=== PATIENT | male | born 1935 | race Hispanic/Latino ===

== ENCOUNTER → 2018-07-29 | Outpatient (CLI) | payer MEDICARE, OTHER ==
[~2018-07-29] MED LIST: METFORMIN HCL500 MG PO; NAMENDA10 MG; TAMSULOSIN HCL0.4 MG; TRAZODONE
--- NOTE | 2018-07-29 12:05 | Diagnostic Imaging Report ---
EXAM: CT Abdomen and Pelvis WITHOUT contrast INDICATION: Gross hematuria. COMPARISON: None. TECHNIQUE: Abdomen and pelvis were scanned utilizing a multidetector helical scanner from the lung base to the pubic symphysis without administration of IV contrast. Absence of intravenous contrast decreases sensitivity for detection of focal lesions and vascular pathology. Coronal and sagittal reformations were obtained. Renal stone protocol was performed. Dose modulation, iterative reconstruction, and/or weight based adjustment of the mA/kV was utilized to reduce the radiation dose to as low as reasonably achievable. RADIATION DOSE: Total DLP: 620.2 mGy*cm COMPLICATIONS: None FINDINGS: Motion artifact limits evaluation of the lower thorax and upper/mid abdomen. LINES and TUBES: None. LOWER THORAX: Diffuse motion artifact severely limits evaluation. Patchy dependent atelectasis. Coronary atherosclerosis. HEPATOBILIARY: No focal hepatic lesions. No biliary ductal dilation. GALLBLADDER: No radio-opaque stones or sludge. No wall thickening. SPLEEN: No splenomegaly. PANCREAS: No focal masses or ductal dilatation. ADRENALS: No adrenal nodules KIDNEYS/URETERS: Limited evaluation of the kidneys secondary to motion artifact. Possible punctate 1 mm calcifications overlying the right upper kidney on series 3, image 50 and left mid kidney on image 67 may represent renal stones or vascular calcifications. No evidence of hydronephrosis. No definite solid mass. No evidence of ureteral stone. GI TRACT: No abnormal distention, wall thickening, or evidence of bowel obstruction. Appendix is normal. PELVIC ORGANS/BLADDER: The bladder is mildly diffusely thick-walled, which may reflect underdistention. There is prostatomegaly, measuring up to 6.7 cm. LYMPH NODES: No lymphadenopathy. VESSELS: There are moderate atherosclerotic calcifications in the aorta and branch vessels. PERITONEUM / RETROPERITONEUM: No free air or fluid. BONES/SOFT TISSUES: Partially seen right proximal femoral fixation hardware. There are old healed left inferior and superior pubic rami fractures. Sclerotic focus within the left posterior aspect of the L5 vertebral body / pedicle is nonspecific, but may represent a bone island. IMPRESSION: Limited study secondary to motion in the lower thorax and upper/mid abdomen. Punctate 1 mm calcifications overlying bilateral kidneys could represent vascular calcifications or renal stones. No evidence of hydronephrosis or ureteral stone. Prostatomegaly measuring up to 6.7 cm. Correlation with lab values and Urologic consultation if clinically indicated is suggested. Sclerotic focus within the left posterior aspect of the L5 vertebral body / pedicle is nonspecific, but could represent a bone island in the absence of known malignancy. Signed by: Dr. Kylah Prather MD on 07/29/2018 12:02 PM
== END ==
LOC: CT 10:29
PROVIDERS: ATTEND Family Medicine
DX: R31.0 Gross hematuria (principal)
CPT/HCPCS: 74176

== ENCOUNTER → 2019-04-17 | Outpatient (CLI) | payer MEDICARE, OTHER ==
--- OUTSIDE RECORDS SUMMARY | 2019-04-17 17:52 | XMS REPORT ---
Author Author [facility] Address Unknown Phone Unavailable Care Team Providers Care Sports Medicine Masseur Name Role Phone RADHA GARCÍA Unavailable Unavailable ESTEE PRICE Unavailable Unavailable Problems This patient has no known problems. Allergies, Adverse Reactions, Alerts This patient has no known allergies or adverse reactions. Medications This patient has no known medications. Results Test Description Test Time Test Comments Text Results Atomic Results Result Comments CT ABDOMEN/PELVIS WO 2018-07-29 11:50:00 [place] [address] Patient Name: MART ANTOINE MR #: [id number] : 1935 Age/Sex: 82/M Req #: [id number] Adm Physician: Ordered by: RICKY PUGA, RADHA Rivera MD Report #: [id number] Location: CT Room/Bed: Procedure: [id number] CT/CT ABDOMEN/PELVIS WO Exam Date: 07/29/18 Exam Time: 1050 REPORT STATUS: Signed EXAM: CT Abdomen and Pelvis WITHOUT contrast INDICATION: Gross hematuria. COMPARISON: None. TECHNIQUE: Abdomen and pelvis were scanned utilizing a multidetector helical scanner from the lung base to the pubic symphysis without administration of IV contrast. Absence of intravenous contrast decreases sensitivity for detection of focal lesions and vascular pathology. Coronal and sagittal reformations were obtained. Renal stone protocol was performed. Dose modulation, iterative reconstruction, and/or weight based adjustment of the mA/kV was utilized to reduce the radiation dose to as low as reasonably achievable. RADIATION DOSE: Total DLP: 620.2 mGy*cm COMPLICATIONS: None FINDINGS: Motion artifact limits evaluation of the lower thorax and upper/mid abdomen. LINES and TUBES: None. LOWER THORAX: Diffuse motion artifact severely limits evaluation. Patchy dependent atelectasis. Coronary atherosclerosis. HEPATOBILIARY: No focal hepatic lesions. No biliary ductal dilation. GALLBLADDER: No radio-opaque stones or sludge. No wall thickening. SPLEEN: No splenomegaly. PANCREAS: No focal masses or ductal dilatation. ADRENALS: No adrenal nodules KIDNEYS/URETERS: Limited evaluation of the kidneys secondary to motion artifact. Possible punctate 1 mm calcifications overlying the right upper kidney on series 3, image 50 and left mid kidney on image 67 may represent renal stones or vascular calcifications. No evidence of hydronephrosis. No definite solid mass. No evidence of ureteral stone. GI TRACT: No abnormal distention, wall thickening, or evidence of bowel obstruction. Appendix is normal. PELVIC ORGANS/BLADDER: The bladder is mildly diffusely thick-walled, which may reflect underdistention. There is prostatomegaly, measuring up to 6.7 cm. LYMPH NODES: No lymphadenopathy. VESSELS: There are moderate atherosclerotic calcifications in the aorta and branch vessels. PERITONEUM / RETROPERITONEUM: No free air or fluid. BONES/SOFT TISSUES: Partially seen right proximal femoral fixation hardware. There are old healed left inferior and superior pubic rami fractures. Sclerotic focus within the left posterior aspect of the L5 vertebral body / pedicle is nonspecific, but may represent a bone island. IMPRESSION: Limited study secondary to motion in the lower thorax and upper/mid abdomen. Punctate 1 mm calcifications overlying bilateral kidneys could represent vascular calcifications or renal stones. No evidence of hydronephrosis or ureteral stone. Prostatomegaly measuring up to 6.7 cm. Correlation with lab values and Urologic consultation if clinically indicated is suggested. Sclerotic focus within the left posterior aspect of the L5 vertebral body / pedicle is nonspecific, but could represent a bone island in the absence of known malignancy. Signed by: Dr. Chalino Arteaga MD on 07/29/2018 12:02 PM Dictated By: CHALINO ARTEAGA MD 1202 Transcribed By: KYM on 07/29/18 1202 COPY TO: RADHA GARCÍA CT ABDOMEN/PELVIS WO [facility] [address] [place] [address] Patient Name: MART ANTOINE MR #: [id number] : 1935 Age/Sex: 81/M Req #: [id number] Adm Physician: Ordered by: ESTEE PRICE MD Report #: [id number] Location: CT Room/Bed: Procedure: [id number] CT/CT ABDOMEN/PELVIS WO Exam Date: 05/08/17 Exam Time: 1535 REPORT STATUS: Signed PROCEDURE: CT ABDOMEN AND PELVIS WITHOUT CONTRAST TECHNIQUE: The abdomen and pelvis were scanned utilizing a multidetector helical scanner from the diaphragm to the lesser trochanter after the oral administration of water. No IV contrast was administered per protocol. Coronal and sagittal multiplanar reformations were obtained. COMPARISON: [facility], CT, CT ABDOMEN/PELVIS WO, 01/18/2016, 11:33. INDICATIONS: CALCULUS OF KIDNEY FINDINGS: ABSENCE OF INTRAVENOUS CONTRAST DECREASES SENSITIVITY FOR DETECTION OF FOCAL LESIONS AND VASCULAR PATHOLOGY. LOWER THORAX: Bilateral posterior lower lobe. Groundglass opacities, likely reflecting atelectasis. No consolidation or pulmonary nodules. Atherosclerotic calcification of the coronary arteries HEPATOBILIARY: No focal hepatic lesions. No biliary ductal dilatation. Gallbladder is unremarkable. SPLEEN: No splenomegaly. PANCREAS: No focal masses or ductal dilatation. ADRENALS: No adrenal nodules. KIDNEYS/URETERS: Punctate nonobstructing calculus in the mid to inferior aspect of the left kidney (coronal image 66). The previously described 4 mm nonobstructing calculus in the left kidney is not seen on the current exam. No other renal or any ureteral calculi. No hydronephrosis or obstruction. No renal contour abnormalities. PELVIC ORGANS/BLADDER: Bladder is unremarkable. Unchanged hola ed prostatic enlargement. PERITONEUM / RETROPERITONEUM: No free air or fluid. LYMPH NODES: No lymphadenopathy. VESSELS: Atherosclerotic calcification of the abdominal aorta and iliac vessels. GI TRACT: No bowel dilation or evidence of obstruction. Appendix is well identified and normal in caliber. BONES AND SOFT TISSUES: No acute bony abnormalities. Stable, nonaggressive appearing 1.1 cm focal sclerotic lesion in the L5 left pedicle, likely representing a bone island. No lytic or other blastic lesions. Mild osteopenia. IMPRESSION: 1. punctate nonobstructing calculus in the mid to inferior aspect of the left kidney. A previously visualized 4 mm nonobstructing calculus in the left kidney is not seen in the current exam. No other renal or ureteral calculi. No hydronephrosis or obstruction. 2. Unchanged marked prostatic enlargement. Gaye Sanchez M.D. Dictated by: Gaye Sanchez M.D. on 05/08/2017 at 16:39 Electronically approved by: Gaye Sanchez M.D. on 05/08/2017 at 16:39 Dictated By: GAYE SANCHEZ MD [id number] Transcribed By: ARY on 05/08/17 6469 COPY TO: ESTEE PRICE MD
--- NOTE | 2019-04-17 19:19 | Diagnostic Imaging Report ---
Radiographs of the ribs and chest x-ray - HISTORY: Pain. Shortness of breath. Cough COMPARISON: None available. FINDINGS: Bones: No acute displaced fracture. Osseous alignment is within normal limits. Joints: Scattered degenerative change. No osseous erosion. Nondisplaced right lateral fourth and fifth rib fractures. Soft tissues: Perihilar peribronchial hazy opacity could be due to bronchitis. No consolidated pneumonia, pleural effusion or pneumothorax. IMPRESSION: Nondisplaced right lateral fourth and fifth rib fractures. Perihilar peribronchial hazy opacity could be due to bronchitis. No consolidated pneumonia, pleural effusion or pneumothorax. Signed by: Dr. Ricco Jack M.D. on 04/17/2019 7:16 PM
== END | disposition home or self-care (01) ==
LOC: RAD 17:50 → EDSTATUS 05-02 14:04
PROVIDERS: ATTEND Family Medicine
DX: S22.41XA Multiple fractures of ribs, right side, initial encounter for closed fracture (principal); R06.02 Shortness of breath; R05 Cough; R52 Pain, unspecified
CPT/HCPCS: 71101

== ENCOUNTER 2020-03-29 16:49 | Emergency (ER) | payer MEDICARE, OTHER ==
[~2020-03-29] VITALS: Ht 167.6 cm; Wt 79.4 kg
--- OUTSIDE RECORDS SUMMARY | 2020-03-29 17:42 | XMS REPORT | Continuity of Care Document ---
Author Author [facility] Organization [facility] Address [address] [place] [address] Phone Unavailable Care Team Providers Care Mri Technician Name Role Phone RADHA GARCÍA Attphys Unavailable ESTEE PRICE Attphyadri Unavailable Problems This patient has no known problems. Allergies, Adverse Reactions, Alerts This patient has no known allergies or adverse reactions. Medications This patient has no known medications. Procedures This patient has no known procedures. Results Test Description Test Time Test Comments Results Result Comments Source MARCOS RAMSAY W/CXR 2019-04-17 19:05:00 [place] [address] Patient Name: MART ANTOINE MR #: [id number] : 1935 Age/Sex: 83/M Req #: [id number] Adm Physician: Ordered by: RICKY PUGA, RADHA Rivera MD Report #: [id number] Location: [facility] Room/Bed: Procedure: [id number] DX/MARCOS RAMSAY W/CXR Exam Date: 04/17/19 Exam Time: 1845 REPORT STATUS: Signed Radiographs of the ribs and chest x-ray - HISTORY: Pain. Shortness of breath. Cough COMPARISON: None available. FINDINGS: Bones: No acute displaced fracture. Osseous alignment is within normal limits. Joints: Scattered degenerative change. No osseous erosion. Nondisplaced right lateral fourth and fifth rib fractures. Soft tissues: Perihilar peribronchial hazy opacity could be due to bronchitis. No consolidated pneumonia, pleural effusion or pneumothorax. IMPRESSION: Nondisplaced right lateral fourth and fifth rib fractures. Perihilar peribronchial hazy opacity could be due to bronchitis. No consolidated pneumonia, pleural effusion or pneumothorax. Signed by: Dr. Ricco Jack M.D. on 04/17/2019 7:16 PM Dictated By: RICCO JACK MD, MD 15 Transcribed By: KYM on 04/17/191915 COPY TO: RADHA GARCÍA CT ABDOMEN/PELVIS WO 2018-07-29 11:50:00 [place] [address] Patient Name: MART ANTOINE MR #: [id number] : 1935 Age/Sex: 82/M Req #: [id number] Adm Physician: Ordered by: RADHA GARCÍA MD, MD Report #: [id number] Location: CT Room/Bed: Procedure: [id number] CT/CT ABDOMEN/PELVIS WO Exam Date: 07/29/18 Exam [...] 1202 COPY TO: RADHA GARCÍA CT ABDOMEN/PELVIS [address] [place], [place] [address] Patient Name: MART ANTOINE MR #: [id number] : 1935 Age/Sex: 81/M Req #: [id number] Adm Physician: Ordered by: ESTEE PRICE MD Report #: [id number] Location: CT Room/Bed: Procedure: [id number] CT/CT ABDOMEN/PELVIS WO Exam Date: 05/08/17 Exam Time: 1535 REPORT STATUS: Signed PROCEDURE: CT ABDOMEN AND PELVIS WITHOUT CONTRAST TECHNIQUE: The abdomen and pelvis were scanned utilizing a multidetector helical scanner from the diaphragm to the lesser trochanter after the oral administration of water. No IV contrast was administered per protocol. Coronal and sagittal multiplanar reformations were obtained. COMPARISON: [facility], CT, CT ABDOMEN/PELVIS WO, 01/18/2016, 11:33. INDICATIONS: [...] at 16:39 Dictated By: GAYE SANCHEZ MD [id number] Transcribed By: ARY on 05/08/17 1639 COPY TO: ESTEE PRICE MD
[2020-03-29 18:21] LABS: BASOPHILS % 0.5 % (0.0-1.0); EOSINOPHILS % 0.4 % (0.0-6.0); HEMATOCRIT 42.7 % (38.2-49.6); HEMOGLOBIN 14.3 g/dL (14.0-18.0); LYMPHOCYTES # (AUTO) 1.7 (1.0-3.2); LYMPHOCYTES % 31.8 % (18.0-39.1); MEAN CORPUSCULAR HEMOGLOBIN 30.6 pg (28-32); MEAN CORPUSCULAR HGB CONC 33.5 g/dL (31-35); MEAN CORPUSCULAR VOLUME 91.2 fL (81-99); MONOCYTES # (AUTO) 0.3 (0.2-0.8); MONOCYTES % 5.7 % (4.4-11.3); NEUTROPHILS # (AUTO) 3.4 (2.1-6.9); NEUTROPHILS % 61.2 % (38.7-80.0); PLATELET COUNT 166 x10e3/uL (140-360); RED BLOOD COUNT 4.68 x10e6/uL (4.3-5.7); RED CELL DISTRIBUTION WIDTH 17.2 % (11.7-14.4)
--- NOTE | 2020-03-29 18:22 | Emergency Department Note ---
History of Present Illnes History of Present Illness Chief Complaint: Genitourinary History of Present Illness This is a 84 year old male Chief Complaint Comment PATIENT IN FROM HOME WITH COMPLAINTS OF BLOOD IN URINE STARTING YESTERDAY; PATIENTS FAMILY STATES THAT DR PRICE SENT HIM IN FOR EVALUATION. PATIENT ALERT AND ORIENTED, RESP EVEN AND NONLABORED, APPEARS IN NO DISTRESS, DENIES PAIN . Historian: Patient Arrival Mode: Car Onset (how long ago): day(s) (2) Radiation: Reports non-radiation; Denies back, Denies neck, Denies extremity, Denies abdomen, Denies periumbilical, Denies flank, Denies proximal, Denies distal, Denies other Severity: mild Onset quality: gradual Duration (how long): day(s) (2) Timing of current episode: constant Progression: unchanged Chronicity: new Context: Denies recent illness, Denies recent surgery, Denies recent immobilization, Denies recent travel, Denies trauma/injury, Denies new medications, Denies hx of DVT/PE, Denies non-compliance w/ medications, Denies other Relieving factors: none Exacerbating factors: none (BRANDY COBB MD) Past Medical/Family History Physician Review I have reviewed the patient's past medical and family history. Any updates have been documented here. (BRANDY COBB MD) Past Medical History Recent Fever: No Clinical Suspicion of Infectio: Yes New/Unexplained Change in Ment: No Past Medical History: Hypertension, Diabetes Other Medical History: BPH (BRANDY COBB MD) Social History Smoking Cessation: Former smoker Counseling Performed: Yes Alcohol Use: None Any Illegal Drug Use: No (BRANDY COBB MD) Other Any Pre-Existing Lines (PICC,: No (BRANDY COBB MD) Review of Systems Review of Systems Constitutional: Reports no symptoms EENTM: Reports no symptoms Cardiovascular: Reports no symptoms Respiratory: Reports no symptoms Gastrointestinal: Reports no symptoms Genitourinary: Reports as per HPI Musculoskeletal: Reports no symptoms Integumentary: Reports no symptoms Neurological: Reports no symptoms Psychological: Reports no symptoms Endocrine: Reports no symptoms Hematological/Lymphatic: Reports no symptoms (BRANDY COBB MD) Physical Exam Related Data Allergies: Coded Allergies: No Known Allergies (Unverified , 03/29/20) Triage Vital Signs Vital Signs Date Time Temp Pulse Resp B/P (MAP) Pulse Ox O2 Delivery O2 Flow Rate FiO2 03/29/20 17:24 97.4 74 18 107/70 98 Room Air Vital signs reviewed: Yes (BRANDY COBB MD) Physical Exam CONSTITUTIONAL Constitutional: Present well-developed, Present well-nourished HENT HENT: Present normocephalic, Present atraumatic, Present oropharynx clear/moist, Present nose normal HENT L/R: Present left ext ear normal, Present right ext ear normal EYES Eyes: Reports PERRL, Reports conjunctivae normal; Denies EOM normal, Denies lids normal, Denies left eye discharge, Denies right eye discharge, Denies scleral icterus, Denies other NECK Neck: Present ROM normal; Absent supple, Absent thyromegaly, Absent tracheal deviation, Absent stridor, Absent JVD, Absent cervical adenopathy, Absent carotid bruit, Absent other PULMONARY Pulmonary: Present effort normal, Present breath sounds normal; Absent respiratory distress, Absent rales, Absent rhonchi, Absent chest tenderness, Absent other CARDIOVASCULAR Cardiovascular: Present regular rhythm, Present heart sounds normal, Present capillary refill normal, Present normal rate; Absent irregular rhythm, Absent intact distal pulses, Absent tachycardia, Absent bradycardia, Absent murmur, Absent gallop, Absent friction rub, Absent palpable pulses, Absent strong pulses, Absent weak pulses, Absent LLE edema, Absent RLE edema, Absent other GASTROINTESTINAL Abdominal: Present soft, Present nontender, Present bowel sounds normal GENITOURINARY Genitourinary: Present exam deferred SKIN Skin: Present warm, Present dry MUSCULOSKELETAL Musculoskeletal: Present ROM normal NEUROLOGICAL Neurological: Present alert, Present oriented x 3, Present no gross motor or sensory deficits PSYCHOLOGICAL Psychological: Present mood/affect normal, Present judgement normal (BRANDY COBB MD) Results Laboratory Laboratory Laboratory Tests Test 03/29/20 17:56 03/29/20 17:28 Lab results reviewed: Yes (BRANDY COBB MD) Imaging Imaging results reviewed: Yes (BRANDY COBB MD) Imaging results reviewed: Yes Impressions [place] [address] Patient Name: MART ANTOINE MR #: [id number] : 1935 Age/Sex: 84/M [facility] #: [id number] [facility] Physician: Ordered by: BRANDY COBB MD Report #: [id number] Location: Room/Bed: Procedure: [id number] CT/CT ABDOMEN/PELVIS WO Exam Date: 03/29/20 Exam Time: 1909 REPORT STATUS: Signed EXAM: CT Abdomen and Pelvis WITHOUT contrast INDICATION: Hematuria COMPARISON: None. TECHNIQUE: Abdomen and pelvis were scanned utilizing a multidetector helical scanner from the lung base to the pubic symphysis without administration of IV contrast. Absence of intravenous contrast decreases sensitivity for detection of focal lesions and vascular pathology. Coronal and sagittal reformations were obtained. Routine protocol was performed. IV CONTRAST: None ORAL CONTRAST: None COMPLICATIONS: None RADIATION DOSE: Total DLP: 390 mGy*cm Estimated effective dose: (DLP x 0.015 x size factor) mSv CTDIvol has been reviewed. It is below the limits set by the Radiation Protocol Committee (RPC). Dose modulation, iterative reconstruction, and/or weight based adjustment of the mA/kV was utilized to reduce the radiation dose to as low as reasonably achievable. FINDINGS: LINES and TUBES: None. LOWER THORAX: There is bibasilar atelectasis. Atherosclerotic calcification of the coronary vessels. HEPATOBILIARY: No focal hepatic lesions. No biliary ductal dilation. GALLBLADDER: No radio-opaque stones or sludge. No wall thickening. SPLEEN: No splenomegaly. Multifocal calcifications which likely represent sequela of prior granulomatous infection. PANCREAS: No focal masses or ductal dilatation. ADRENALS: No adrenal nodules KIDNEYS/URETERS: No hydronephrosis. No cystic or solid mass lesions. No stones. Punctate calcifications in bilateral kidneys are favored to be vascular calcifications. GI TRACT: No abnormal distention, wall thickening, or evidence of bowel obstruction. Appendix is normal. PELVIC ORGANS/BLADDER: The prostate gland is enlarged measuring approximately 7.6 x 5.9 cm. LYMPH NODES: No lymphadenopathy. VESSELS: Scattered mild arterial vascular calcifications. PERITONEUM / RETROPERITONEUM: No free air or fluid. BONES: The bones are diffusely demineralized. There are degenerative changes in the spine. Partially imaged right femur intramedullary nail. No evidence of hardware complication. Healed left inferior pubic rami fracture. SOFT TISSUES: Unremarkable. IMPRESSION: 1. No obstructive renal or ureteral stones bilaterally. 2. Prostatomegaly. Signed by: Uche Awan MD on 03/29/2020 7:53 PM Dictated By: UCHE AWAN MD 52 Transcribed By: KYM on 03/29/201952 COPY TO: BRANDY COBB MD~ (RICHA AJ DO) Assessment & Plan Medical Decision Making MDM Diff dx : UTI, cystitis, hemorrhagic cystitis, Bladder CA, sepsis (RICHA AJ DO) Assessment & Plan Final Impression: (1) UTI (urinary tract infection) (RICHA AJ DO) Depart Disposition: HOME, SELF-CARE Last Vital Signs Date Time Temp Pulse Resp B/P (MAP) Pulse Ox O2 Delivery O2 Flow Rate FiO2 03/29/20 18:08 70 16 106/69 96 Room Air 03/29/20 17:24 97.4 (BRANDY COBB MD) Home Meds Reported Medications Tamsulosin Hcl (TAMSULOSIN HCL) 0.4 Mg Cap.er.24h, HS 04/07/16 Memantine Hcl (NAMENDA) 10 Mg Tablet, 10 MG BID, #30 TAB 04/07/16 [Trazodone ] No Conflict Check, 150 MG HS 04/07/16 Metformin Hcl (METFORMIN HCL) 500 Mg Tablet, 1000 MG PO HS, #60 TAB 04/07/16 BRANDY COBB MD Mar 29, 2020 18:22 RICHA AJ DO Mar 29, 2020 20:08
[2020-03-29 18:24] LABS: BILIRUBIN,URINE NEGATIVE (NEGATIVE); CLARITY,URINE SL CLOUDY (CLEAR); COLOR,URINE STRAW (YELLOW); KETONES,URINE TRACE (NEGATIVE); LEUKOCYTE ESTERASE ,URINE NEGATIVE (NEGATIVE); NITRITE,URINE NEGATIVE (NEGATIVE); PROTEIN,URINE DIPSTICK TRACE (NEGATIVE); URINE UROBILINOGEN 0.2 mg/dL (0.2 - 1)
[2020-03-29 18:25] LABS: INR 0.93; PROTHROMBIN TIME 12.9 seconds (11.9-14.5)
[2020-03-29 18:34] LABS: ALANINE AMINOTRANSFERASE 32 IU/L (0-55); ALBUMIN 4.3 g/dL (3.5-5.0); ALBUMIN/GLOBULIN RATIO 1.2 (0.8-2.0); ALKALINE PHOSPHATASE 102 IU/L (40-150); ANION GAP 14.6 mmol/L (8-16); BLOOD UREA NITROGEN 10 mg/dL (7-26); BUN/CREATININE RATIO 10 (6-25); CALCIUM 9.3 mg/dL (8.4-10.2); CARBON DIOXIDE 23 mmol/L (22-29); CHLORIDE 106 mmol/L (98-107); CREATININE, SERUM 1.04 mg/dL (0.72-1.25); EST GLOMERULAR FILTRATION RATE > 60 ML/MIN (60-); GLUCOSE 170 mg/dL (74-118); POTASSIUM 3.6 mmol/L (3.5-5.1); SODIUM 140 mmol/L (136-145)
[2020-03-29 18:36] LABS: BACTERIA,URINE MODERATE /HPF; CALCIUM OXALATE CRYSTALS,UR FEW (FEW); EPITHELIAL CELLS,URINE FEW /LPF
--- NOTE | 2020-03-29 19:56 | Diagnostic Imaging Report ---
EXAM: CT Abdomen and Pelvis WITHOUT contrast INDICATION: Hematuria COMPARISON: None. TECHNIQUE: Abdomen and pelvis were scanned utilizing a multidetector helical scanner from the lung base to the pubic symphysis without administration of IV contrast. Absence of intravenous contrast decreases sensitivity for detection of focal lesions and vascular pathology. Coronal and sagittal reformations were obtained. Routine protocol was performed. IV CONTRAST: None ORAL CONTRAST: None COMPLICATIONS: None RADIATION DOSE: Total DLP: 390 mGy*cm Estimated effective dose: (DLP x 0.015 x size factor) mSv CTDIvol has been reviewed. It is below the limits set by the Radiation Protocol Committee (RPC). Dose modulation, iterative reconstruction, and/or weight based adjustment of the mA/kV was utilized to reduce the radiation dose to as low as reasonably achievable. FINDINGS: LINES and TUBES: None. LOWER THORAX: There is bibasilar atelectasis. Atherosclerotic calcification of the coronary vessels. HEPATOBILIARY: No focal hepatic lesions. No biliary ductal dilation. GALLBLADDER: No radio-opaque stones or sludge. No wall thickening. SPLEEN: No splenomegaly. Multifocal calcifications which likely represent sequela of prior granulomatous infection. PANCREAS: No focal masses or ductal dilatation. ADRENALS: No adrenal nodules KIDNEYS/URETERS: No hydronephrosis. No cystic or solid mass lesions. No stones. Punctate calcifications in bilateral kidneys are favored to be vascular calcifications. GI TRACT: No abnormal distention, wall thickening, or evidence of bowel obstruction. Appendix is normal. PELVIC ORGANS/BLADDER: The prostate gland is enlarged measuring approximately 7.6 x 5.9 cm. LYMPH NODES: No lymphadenopathy. VESSELS: Scattered mild arterial vascular calcifications. PERITONEUM / RETROPERITONEUM: No free air or fluid. BONES: The bones are diffusely demineralized. There are degenerative changes in the spine. Partially imaged right femur intramedullary nail. No evidence of hardware complication. Healed left inferior pubic rami fracture. SOFT TISSUES: Unremarkable. IMPRESSION: 1. No obstructive renal or ureteral stones bilaterally. 2. Prostatomegaly. Signed by: Armida Powers MD on 03/29/2020 7:53 PM
== END 2020-03-29 20:20 | disposition home or self-care (01) ==
LOC: ER 17:20
DX: N39.0 Urinary tract infection, site not specified (principal); R31.9 Hematuria, unspecified; I10 Essential (primary) hypertension; E11.9 Type 2 diabetes mellitus without complications
CPT/HCPCS: 36415; 74176; 80053; 81001; 85025; 85610; 99284

== ENCOUNTER 2020-04-25 19:39 | Inpatient (IN) | payer MEDICARE, OTHER ==
[~2020-04-25] VITALS: Ht 167.6 cm; Wt 79.4 kg
--- NOTE | 2020-04-25 20:41 | Emergency Department Note ---
History of Present Illnes History of Present Illness Chief Complaint: Extremity Trauma/Pain History of Present Illness This is a 84 year old male presents to ED with pain to left hip and left elbow (small abrasion noted to elbow); pts daughter reports witnessed fall [employer] to ED, denies LOC; . Awake Overnight Monitor Required: No Onset (how long ago): hour(s) (1) Location: left elbow,left hip Quality: pain s/p fall Radiation: Reports non-radiation Severity: moderate Onset quality: sudden Duration (how long): hour(s) (1) Timing of current episode: constant Progression: unchanged Context: Reports trauma/injury (tripped and fell taking out the garbage) Relieving factors: none Exacerbating factors: movement Associated symptoms: Reports denies other symptoms Past Medical/Family History Physician Review I have reviewed the patient's past medical and family history. Any updates have been documented here. Past Medical History Recent Fever: No Clinical Suspicion of Infectio: No New/Unexplained Change in Ment: No Past Medical History: Hypertension, Diabetes Other Medical History: BPH Past Surgical History: None Social History Smoking Cessation: Never Smoker Alcohol Use: None Any Illegal Drug Use: No Review of Systems Review of Systems Constitutional: Reports no symptoms EENTM: Reports no symptoms Cardiovascular: Reports no symptoms Respiratory: Reports no symptoms Gastrointestinal: Reports no symptoms Genitourinary: Reports no symptoms Musculoskeletal: Reports as per HPI Integumentary: Reports no symptoms Neurological: Reports no symptoms Psychological: Reports no symptoms Endocrine: Reports no symptoms Hematological/Lymphatic: Reports no symptoms Physical Exam Related Data Allergies: Coded Allergies: No Known Allergies (Unverified , 03/29/20) Triage Vital Signs Vital Signs Date Time Temp Pulse Resp B/P (MAP) Pulse Ox O2 Delivery O2 Flow Rate FiO2 04/25/20 19:46 97.7 72 16 117/70 100 Room Air Vital signs reviewed: Yes Physical Exam CONSTITUTIONAL Constitutional: Present well-developed, Present well-nourished HENT HENT: Present normocephalic, Present atraumatic, Present oropharynx clear/moist, Present nose normal HENT L/R: Present left ext ear normal, Present right ext ear normal EYES Eyes: Reports PERRL, Reports conjunctivae normal, Reports scleral icterus (minimal possible icterus) NECK Neck: Present ROM normal PULMONARY Pulmonary: Present effort normal, Present breath sounds normal CARDIOVASCULAR Cardiovascular: Present regular rhythm, Present heart sounds normal, Present capillary refill normal, Present normal rate GASTROINTESTINAL Abdominal: Present soft, Present nontender, Present bowel sounds normal GENITOURINARY Genitourinary: Present exam deferred SKIN Skin: Present warm, Present dry MUSCULOSKELETAL abrasion to left elbow pain with rom of left hip n/v intact NEUROLOGICAL Neurological: Present alert, Present oriented x 3, Present no gross motor or sensory deficits PSYCHOLOGICAL Psychological: Present mood/affect normal, Present judgement normal Results Laboratory Laboratory Laboratory Tests Test 04/25/20 19:51 White Blood Count 11.02 x10e3/uL (4.8-10.8) Red Blood Count 4.57 x10e6/uL (4.3-5.7) Hemoglobin 14.1 g/dL (14.0-18.0) Hematocrit 42.1 % (38.2-49.6) Mean Corpuscular Volume 92.1 fL (81-99) Mean Corpuscular Hemoglobin 30.9 pg (28-32) Mean Corpuscular Hemoglobin Concent 33.5 g/dL (31-35) Red Cell Distribution Width 17.4 % (11.7-14.4) Platelet Count 201 x10e3/uL (140-360) Neutrophils (%) (Auto) 80.2 % (38.7-80.0) Lymphocytes (%) (Auto) 14.2 % (18.0-39.1) Monocytes (%) (Auto) 4.4 % (4.4-11.3) Eosinophils (%) (Auto) 0.3 % (0.0-6.0) Basophils (%) (Auto) 0.3 % (0.0-1.0) Neutrophils # (Auto) 8.8 (2.1-6.9) Lymphocytes # (Auto) 1.6 (1.0-3.2) Monocytes # (Auto) 0.5 (0.2-0.8) Eosinophils # (Auto) 0.0 (0.0-0.4) Basophils # (Auto) 0.0 (0.0-0.1) Absolute Immature Granulocyte (auto 0.07 x10e3/uL (0-0.1) Sodium Level 138 mmol/L (136-145) Potassium Level 3.9 mmol/L (3.5-5.1) Chloride Level 104 mmol/L (98-107) Carbon Dioxide Level 20 mmol/L (22-29) Anion Gap 17.9 mmol/L (8-16) Blood Urea Nitrogen 14 mg/dL (7-26) Creatinine 0.93 mg/dL (0.72-1.25) Estimat Glomerular Filtration Rate > 60 ML/MIN (60-) BUN/Creatinine Ratio 15 (6-25) Glucose Level 191 mg/dL (74-118) Calcium Level 9.0 mg/dL (8.4-10.2) Total Bilirubin 0.5 mg/dL (0.2-1.2) Aspartate Amino Transf (AST/SGOT) 48 IU/L (5-34) Alanine Aminotransferase (ALT/SGPT) 36 IU/L (0-55) Alkaline Phosphatase 104 IU/L (40-150) Creatine Kinase 81 IU/L (30-200) Creatine Kinase MB 1.30 ng/mL (0-5.0) Troponin I 0.008 ng/mL (0-0.300) Total Protein 7.7 g/dL (6.5-8.1) Albumin 4.4 g/dL (3.5-5.0) Globulin 3.3 g/dL (2.3-3.5) Albumin/Globulin Ratio 1.3 (0.8-2.0) Amylase Level 153 U/L (25-125) Lipase 52 U/L (8-78) Lab results reviewed: Yes Imaging Imaging results reviewed: Yes Impressions [place] [id number] Patient Name: MART ANTOINE MR #: [id number] : 1935 Age/Sex: 84/M Req #: [id number] Adm Physician: Ordered by: PHILLIP ANDRES MD Report #: [id number] Location: Room/Bed: Procedure: DX/ELBOW LEFT COMPLETE Exam Date: 04/25/20 Exam Time: 2109 REPORT STATUS: Signed X-ray left elbow 3 views HISTORY: Pain. Fall COMPARISON: None available. FINDINGS: Bones: Tiny krishna of ossific ossific adjacent to the lateral condyle with adjacent soft tissue swelling. Otherwise, no acute displaced fracture. Bone demineralization. Joints: The joint spaces are well-maintained. IMPRESSION: 1. Tiny krishna of ossific density with adjacent soft tissue swelling at the lateral epicondyles may represent a ligamentous avulsion injury, or chronic epicondylitis. Correlate for point tenderness. 2. Otherwise, no acute displaced fracture or dislocation. Signed by: Vern Nolasco MD on 04/25/2020 9:42 PM Dictated By: VERN NOLASCO MD 41 Transcribed By: KYM on 04/25/202141 COPY TO: PHILLIP ANDRES MD~ [place] [id number] Patient Name: MART ANTOINE MR #: [id number] : 1935 Age/Sex: 84/M Req #: [id number] Adm Physician: Ordered by: PHILLIP ANDRES MD Report #: [id number] Location: ER Room/Bed: Procedure: DX/HIP LEFT 2-3 VW (+/- PELVIS) Exam Date: Exam Time: REPORT STATUS: Signed HIP LEFT 2-3 VW (+/- PELVIS) - 3 views HISTORY: Pain. Fall COMPARISON: CT dated 03/29/2020.. FINDINGS: Acute mildly displaced intertrochanteric fracture of the left hip which extends into the subcapital femoral neck region. Left femoral head articulates with the acetabulum. Old chronic fracture deformity of the left inferior pubic ramus as seen on prior CT. Partially imaged right femoral to intramedullary nail and screw fixation with adjacent heterotopic ossification. Degenerative changes of the spine. Bones are demineralized. IMPRESSION: Acute mildly displaced intertrochanteric fracture of the left hip that extends into the subcapital region. Signed by: Vern Nolasco MD on 04/25/2020 9:47 PM Dictated By: VERN NOLASCO MD 46 Transcribed By: KYM on 04/25/202146 COPY TO: PHILLIP ANDRES MD~ Procedure: [id number] CT/CT CERVICAL SPINE WO Exam Date: Exam Time: REPORT STATUS: Signed EXAMINATION: Head and cervical spine CT without contrast. HISTORY: 84-year-old male status post fall, trauma, pain COMPARISON: None. TECHNIQUE: Multidetector axial images were obtained without contrast from the foramen magnum to the vertex and through the cervical spine. Dose modulation, iterative reconstruction, and/or weight based adjustment of the mA/kV was utilized to reduce the radiation dose to as low as reasonably achievable. HEAD CT FINDINGS: Skull/scalp: No lytic or blastic lesions. No fractures. Parenchyma: Normal. No mass, hemorrhage or CT evidence of acute vascular insult. Brain volume: Normal for age. Ventricles: No hydrocephalus or displacement. 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 Dural sinuses: No abnormal density. Extra-axial spaces: No abnormal density. Foramen magnum: No mass, Chiari malformation, or basilar invagination. Sella: No obvious mass. Paranasal/mastoid sinuses: Imaged portions unremarkable. CERVICAL SPINE CT FINDINGS: Alignment:Normal alignment and lordosis. Soft tissues: Normal. Vertebrae: Minimal chronic compression deformity of the C5, C6 and C7 vertebral bodies, which may represent sequela from old trauma or be related to osteopenia/osteoporosis. Otherwise normal height. No acute fracture, infection or neoplasm. Degenerative changes: No significant degenerative changes, no spinal canal or foraminal stenosis. IMPRESSION: Head CT: No acute posttraumatic intracranial abnormalities, particularly no hemorrhage. Cervical spine CT: 1. No acute fractures or dislocations. 2. Diffuse osteopenia and minimal chronic compression deformity from C5 to C7 vertebral bodies. Note: Acute post traumatic spinal cord, vascular or ligamentous injury cannot adequately be assessed with CT. Signed by: Dr. Meghan Villarreal M.D. on 04/25/2020 10:09 PM Dictated By: MEGHAN VILLARREAL MD 08 Transcribed By: KYM on 04/25/202208 COPY TO: PHILLIP ANDRES MD~ Assessment & Plan Medical Decision Making MDM pt s/p fall and appears to possibly have scleral icterus ct brain, left elbow, left hip, cbc, cmp ordered to eval for fractures, intracranial trauma, elevated bilirubin,elevated lft's, anemia I SPOKE WITH DR DASH AND HE REQUESTED DR TAM BE CONSULTED, I SPOKE WITH DR TAM Assessment & Plan Final Impression: (1) Abrasion of left elbow (2) Hip fracture, left Depart Disposition: ADMITTED Last Vital Signs Date Time Temp Pulse Resp B/P (MAP) Pulse Ox O2 Delivery O2 Flow Rate FiO2 04/25/20 19:46 97.7 72 16 117/70 100 Room Air Home Meds Reported Medications Tamsulosin Hcl (TAMSULOSIN HCL) 0.4 Mg Cap.er.24h, HS 04/07/16 Memantine Hcl (NAMENDA) 10 Mg Tablet, 10 MG BID, #30 TAB 04/07/16 [Trazodone ] No Conflict Check, 150 MG HS 04/07/16 Metformin Hcl (METFORMIN HCL) 500 Mg Tablet, 1000 MG PO HS, #60 TAB 04/07/16 PHILLIP ANDRES MD Apr 25, 2020 20:41
[2020-04-25 20:47] LABS: BASOPHILS % 0.3 % (0.0-1.0); EOSINOPHILS % 0.3 % (0.0-6.0); HEMATOCRIT 42.1 % (38.2-49.6); HEMOGLOBIN 14.1 g/dL (14.0-18.0); LYMPHOCYTES # (AUTO) 1.6 (1.0-3.2); LYMPHOCYTES % 14.2 % (18.0-39.1); MEAN CORPUSCULAR HEMOGLOBIN 30.9 pg (28-32); MEAN CORPUSCULAR HGB CONC 33.5 g/dL (31-35); MEAN CORPUSCULAR VOLUME 92.1 fL (81-99); MONOCYTES # (AUTO) 0.5 (0.2-0.8); MONOCYTES % 4.4 % (4.4-11.3); NEUTROPHILS # (AUTO) 8.8 (2.1-6.9); NEUTROPHILS % 80.2 % (38.7-80.0); PLATELET COUNT 201 x10e3/uL (140-360); RED BLOOD COUNT 4.57 x10e6/uL (4.3-5.7); RED CELL DISTRIBUTION WIDTH 17.4 % (11.7-14.4)
[2020-04-25 20:58] LABS: ALANINE AMINOTRANSFERASE 36 IU/L (0-55); ALBUMIN 4.4 g/dL (3.5-5.0); ALBUMIN/GLOBULIN RATIO 1.3 (0.8-2.0); ALKALINE PHOSPHATASE 104 IU/L (40-150); ANION GAP 17.9 mmol/L (8-16); BLOOD UREA NITROGEN 14 mg/dL (7-26); BUN/CREATININE RATIO 15 (6-25); CARBON DIOXIDE 20 mmol/L (22-29); CHLORIDE 104 mmol/L (98-107); CREATINE KINASE 81 IU/L (30-200); CREATININE, SERUM 0.93 mg/dL (0.72-1.25); EST GLOMERULAR FILTRATION RATE > 60 ML/MIN (60-); GLUCOSE 191 mg/dL (74-118); POTASSIUM 3.9 mmol/L (3.5-5.1); SODIUM 138 mmol/L (136-145)
[2020-04-25 21:21] LABS: AMYLASE 153 U/L (25-125); LIPASE 52 U/L (8-78)
--- NOTE | 2020-04-25 21:46 | Diagnostic Imaging Report ---
X-ray left elbow 3 views HISTORY: Pain. Fall COMPARISON: None available. FINDINGS: Bones: Tiny krishna of ossific ossific adjacent to the lateral condyle with adjacent soft tissue swelling. Otherwise, no acute displaced fracture. Bone demineralization. Joints: The joint spaces are well-maintained. IMPRESSION: 1. Tiny krishna of ossific density with adjacent soft tissue swelling at the lateral epicondyles may represent a ligamentous avulsion injury, or chronic epicondylitis. Correlate for point tenderness. 2. Otherwise, no acute displaced fracture or dislocation. Signed by: Darryl Marks MD on 04/25/2020 9:42 PM
--- NOTE | 2020-04-25 21:50 | Diagnostic Imaging Report ---
HIP LEFT 2-3 VW (+/- PELVIS) - 3 views HISTORY: Pain. Fall COMPARISON: CT dated 03/29/2020.. FINDINGS: Acute mildly displaced intertrochanteric fracture of the left hip which extends into the subcapital femoral neck region. Left femoral head articulates with the acetabulum. Old chronic fracture deformity of the left inferior pubic ramus as seen on prior CT. Partially imaged right femoral to intramedullary nail and screw fixation with adjacent heterotopic ossification. Degenerative changes of the spine. Bones are demineralized. IMPRESSION: Acute mildly displaced intertrochanteric fracture of the left hip that extends into the subcapital region. Signed by: Darryl Marks MD on 04/25/2020 9:47 PM
[2020-04-25] MEDS ORDERED: MORPHINE SULFATE INJ 4 MG/ML INJ 1ML IV STA (21:51)
[2020-04-25] MEDS ORDERED: ONDANSETRON HCL INJ 2MG/ML 2ML 2 MG/ML VIAL IV STA (21:51)
--- NOTE | 2020-04-25 22:12 | Diagnostic Imaging Report ---
EXAMINATION: Head and cervical spine CT without contrast. HISTORY: 84-year-old male status post fall, trauma, pain COMPARISON: None. TECHNIQUE: Multidetector axial images were obtained without contrast from the foramen magnum to the vertex and through the cervical spine. Dose modulation, iterative reconstruction, and/or weight based adjustment of the mA/kV was utilized to reduce the radiation dose to as low as reasonably achievable. HEAD CT FINDINGS: Skull/scalp: No lytic or blastic lesions. No fractures. Parenchyma: Normal. No mass, hemorrhage or CT evidence of acute vascular insult. Brain volume: Normal for age. Ventricles: No hydrocephalus or displacement. 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 Dural sinuses: No abnormal density. Extra-axial spaces: No abnormal density. Foramen magnum: No mass, Chiari malformation, or basilar invagination. Sella: No obvious mass. Paranasal/mastoid sinuses: Imaged portions unremarkable. CERVICAL SPINE CT FINDINGS: Alignment:Normal alignment and lordosis. Soft tissues: Normal. Vertebrae: Minimal chronic compression deformity of the C5, C6 and C7 vertebral bodies, which may represent sequela from old trauma or be related to osteopenia/osteoporosis. Otherwise normal height. No acute fracture, infection or neoplasm. Degenerative changes: No significant degenerative changes, no spinal canal or foraminal stenosis. IMPRESSION: Head CT: No acute posttraumatic intracranial abnormalities, particularly no hemorrhage. Cervical spine CT: 1. No acute fractures or dislocations. 2. Diffuse osteopenia and minimal chronic compression deformity from C5 to C7 vertebral bodies. Note: Acute post traumatic spinal cord, vascular or ligamentous injury cannot adequately be assessed with CT. Signed by: Dr. Kyung Villarreal M.D. on 04/25/2020 10:09 PM
[2020-04-25] MEDS ORDERED: DEXTROSE 50% SYRINGE 50 ML IV PRN (22:30)
[2020-04-25] MEDS ORDERED: HEPARIN SOD (PORCINE) 5,000 UNIT/ML VIAL SC ONE (22:45)
[2020-04-25] MEDS ORDERED: HEPARIN SOD (PORCINE) 5,000 UNIT/ML VIAL ONE (22:48)
[2020-04-25] MEDS ORDERED: SODIUM CHLORIDE 0.9% 1000ML 1,000 ML ONE (22:49)
[2020-04-25] MEDS: SODIUM CHLORIDE 0.9% 1000ML 1,000 ML IV SCH (22:54)
[2020-04-25 23:17] LABS: INR 1.07; PROTHROMBIN TIME 14.4 seconds (11.9-14.5)
[2020-04-25 23:18] LABS: PARTIAL THROMBOPLASTIN TIME 35.9 seconds (23.8-35.5)
--- NOTE | 2020-04-25 23:18 | Diagnostic Imaging Report ---
EXAMINATION: CHEST SINGLE (PORTABLE) INDICATION: ^PRE OP ^[id number] ^[id number] ^Y COMPARISON: X-ray 04/07/2016 FINDINGS: TUBES and LINES: None. LUNGS: Low lung volumes, likely accentuated interstitial pulmonary markings. No consolidations. PLEURA: No pleural effusion or pneumothorax. HEART AND MEDIASTINUM: The cardiomediastinal silhouette is unremarkable. BONES AND SOFT TISSUES: No acute osseous lesion. Soft tissues are unremarkable. UPPER ABDOMEN: No free air under the diaphragm. IMPRESSION: No acute thoracic abnormality. Signed by: Darryl Marks MD on 04/25/2020 11:18 PM
[2020-04-25 23:34] LABS: CLARITY,URINE CLEAR (CLEAR); COLOR,URINE YELLOW (YELLOW); LEUKOCYTE ESTERASE ,URINE NEGATIVE (NEGATIVE); NITRITE,URINE NEGATIVE (NEGATIVE)
[2020-04-25 23:35] LABS: BACTERIA,URINE FEW /HPF; BILIRUBIN,URINE NEGATIVE (NEGATIVE); EPITHELIAL CELLS,URINE FEW /LPF; KETONES,URINE 1+ (NEGATIVE); PROTEIN,URINE DIPSTICK NEGATIVE (NEGATIVE); URINE UROBILINOGEN 0.2 mg/dL (0.2 - 1)
--- NOTE | 2020-04-25 23:46 | Diagnostic Imaging Report ---
FEMUR 2 VIEWS MINIMUM LEFT - 3 views HISTORY: Pain. Fall COMPARISON: Radiograph from today. FINDINGS: Redemonstrated intertrochanteric left hip fracture. Redemonstrated chronic fracture deformity of the inferior pubic ramus. No acute fracture of the left femoral shaft. IMPRESSION: 1. No acute fracture of the left femoral shaft. 2. Redemonstrated acute intertrochanteric hip fracture. Signed by: Darryl Marks MD on 04/25/2020 11:43 PM
--- NOTE | 2020-04-25 23:50 | NUR ---
Patient arrived to the floor via stretcher. Patient divehi speaking with ALZ. Consent completed in ER. Wound to left elbow applied dressing to cover. Patient denies pain.
[2020-04-26] VITALS (8 sets, daily range): BP systolic 100–128; BP diastolic 64–102
[2020-04-26 00:16] LABS: CALCIUM OXALATE CRYSTALS,UR FEW (FEW); MUCUS,URINE MANY (RARE)
--- NOTE | 2020-04-26 05:08 | NUR ---
Assessment and admit completed, Patient NPO for procedure. Patient slightly confuse. Consent signed by .
--- NOTE | 2020-04-26 05:15 | NUR ---
Patient HR up to 150. Called left message of .
[2020-04-26 05:40] LABS: BASOPHILS % 0.1 % (0.0-1.0); EOSINOPHILS % 0.1 % (0.0-6.0); HEMATOCRIT 34.7 % (38.2-49.6); HEMOGLOBIN 12.1 g/dL (14.0-18.0); LYMPHOCYTES # (AUTO) 0.8 (1.0-3.2); MEAN CORPUSCULAR HEMOGLOBIN 31.9 pg (28-32); MEAN CORPUSCULAR HGB CONC 34.9 g/dL (31-35); MEAN CORPUSCULAR VOLUME 91.6 fL (81-99); MONOCYTES # (AUTO) 0.8 (0.2-0.8); MONOCYTES % 6.8 % (4.4-11.3); NEUTROPHILS # (AUTO) 9.7 (2.1-6.9); NEUTROPHILS % 85.4 % (38.7-80.0); PLATELET COUNT 140 x10e3/uL (140-360); RED BLOOD COUNT 3.79 x10e6/uL (4.3-5.7); RED CELL DISTRIBUTION WIDTH 16.9 % (11.7-14.4)
[2020-04-26 05:59] LABS: ANION GAP 14.9 mmol/L (8-16); BLOOD UREA NITROGEN 12 mg/dL (7-26); BUN/CREATININE RATIO 16 (6-25); CALCIUM 8.1 mg/dL (8.4-10.2); CARBON DIOXIDE 18 mmol/L (22-29); CHLORIDE 109 mmol/L (98-107); CREATININE, SERUM 0.74 mg/dL (0.72-1.25); EST GLOMERULAR FILTRATION RATE > 60 ML/MIN (60-); GLUCOSE 163 mg/dL (74-118); POTASSIUM 3.9 mmol/L (3.5-5.1); SODIUM 138 mmol/L (136-145)
[2020-04-26] MEDS: INSULIN REGULAR, HUMAN 100 UNIT/1 ML 3ML VIAL SQ SCH ×4 (07:30→21:00)
[2020-04-26] MEDS: SODIUM CHLORIDE 0.9% 1000ML 1,000 ML IV SCH ×3 (10:11→21:34)
[2020-04-26] MEDS: MORPHINE SULFATE INJ 4 MG/ML INJ 1ML IV PRN ×3 (10:12→21:35)
[2020-04-26] MEDS ORDERED: ACETAMINOPHEN 325 MG TAB PO PRN (12:00)
[2020-04-26] MEDS ORDERED: HYDRALAZINE HCL 20 MG/ML VIAL IV PRN (12:00)
[2020-04-26] MEDS ORDERED: PHENYLEPHRINE HCL 1% 10 MG/ML VIAL ONE (12:05)
[2020-04-26] MEDS ORDERED: SEVOFLURANE INHAL SOLN 250 ML PEN BTL ONE (12:05)
[2020-04-26] MEDS ORDERED: LIDOCAINE HCL 2% LOCAL INJ 5 ML SDV VIAL INJ ONE (12:05)
[2020-04-26] MEDS ORDERED: ONDANSETRON HCL INJ 2MG/ML 2ML 2 MG/ML VIAL ONE (12:05)
[2020-04-26] MEDS ORDERED: PROPOFOL IV EMULSION 10 MG/ML 20 ML VIAL ONE (12:05)
[2020-04-26] MEDS ORDERED: ACETAMINOPHEN 1000 MG/100 ML IV ONE (12:05)
[2020-04-26] MEDS ORDERED: BUPIVACAINE HCL 0.5% INJ 30 ML VIAL INJ ONE (12:26)
--- NOTE | 2020-04-26 12:30 | NUR ---
Pt was transferred to OR at this time for procedure. Pt aox2 a this time, 0 s/s of acute distress noted at time of transfer. Family at the bedside.
[2020-04-26] MEDS ORDERED: FENTANYL CITRATE/PF 100MCG/2 ML INJ ONE (13:12)
[2020-04-26] MEDS ORDERED: ACETAMINOPHEN 1000 MG/100 ML 100 ML IV ONE (14:06)
--- NOTE | 2020-04-26 15:20 | NUR ---
ORTHOPEDIC CONSULTATION 84 year old household ambulator with a walker presents to the ED after a mechanical fall with complaints of left hip pain and an inability to ambulate. He has some minor pain in his left elbow. Denies any numbness, paresthesias or loss of distal motor function. Patient has alzheimers and is a poor history. History provided by family at bedside PMdHx: HTN, Hypothyroidism, DM Allergies: NKDA SurgHx: Cataract, Right Hip IMN (Jags 2017) FamHx: Non-contributory Meds: See Reconciliation SocHx: No tobacco, EtOH or Drugs VS: AVSS Left Lower Extremity: No open lesions or sores Unable to straignt leg raise, pain with log roll & heal strike Motor: + EHL, FHL, TA, G/S Sensation grossly intact to light touch Pulses + DP, Post tib Compartments soft Negative calf tenderness Left Elbow: Skin tear 5x5mm along lateral epicondyle Motor: + AIN, PIN, Radial, Median, Ulnar Sensation grossly intact to light touch Pulses + DP, Post tib Compartments soft Negative calf tenderness Xrays: Non-displaced Left Intertrochanteric Hip Fracture Calcification along lateral epicondyle of left elbow, likely calcific tendinitis 84 year old male with Left Intertrochanteric Hip Fracture and Left Elbow Laceration -Plan for left hip IMN -NPO except meds, -Hold anticoagulation -IVF while NPO -Bedrest -Left Elbow placed with clean dressing- no intervention required. Thank you for the consultation
--- NOTE | 2020-04-26 15:25 | NUR ---
OPERATIVE NOTE - ORTHOPEDICS PREOPERATIVE DIAGNOSIS: Left Hip Intertrochanteric hip fracture. POSTOPERATIVE DIAGNOSIS: Left Hip Intertrochanteric hip fracture. OPERATION PERFORMED: Left Hip Intramedullary Nailing with Flouroscopic Interpretation ESTIMATED BLOOD LOSS: Approximately 100 cc. DRAINS: None. ANESTHESIA GIVEN: General COMPLICATIONS: None. IMPLANTS: [employer] Gamma 3 system Trochanteric Nail Kit 13 x 400 mm x 125 degree, 10.5 x 85 mm Lag Screw, 5 x 50 & 5 x 60 mm Locking Fully Threaded Screw INDICATIONS FOR PROCEDURE: The patient is a 84-year-old male, who sustained a Left intertrochanteric hip fracture after a fall. He was admitted for a preoperative medical clearance and to be taken to the operating room for an intramedullary nailing of Left hip fracture. Consent is signed on the chart. All risks and benefits regarding the procedure were explained: Risks of , infection, nerve or blood vessel injury or bleeding, need for blood transfusion, blood clots, failure to heal, need for further surgery were all explained and consent was signed. DESCRIPTION OF OPERATIVE PROCEDURE: The patient was given Ancef 2 gram intravenously in the holding area. He with then taken to the operating room where general anesthetic was placed by the anesthesia service on the hospital bed. He was then transferred over to the fracture table in the supine position where a well-padded post was positioned. The [facility] lower extremity with a SCD was placed into the thigh/leg support with foam padding over all bony prominence s. The [facility] lower extremity had abundant padding placed around the foot and ankle region and was then placed in the foot and ankle support. Next, the Left hip was visualized under AP and lateral fluoroscopic views. The femoral head and neck were well-visualized in both planes at this time. Next, the Left hip was prepped and draped in the usual sterile fashion utilizing Alcohol then Chloroprep followed by toweling out, followed by drying, followed by placement of a shower curtain. Next, a guidepin was placed over the hip and an AP fluoroscopic view taken to demarcate the height of the greater trochanter and a lateral to demarcate the direction of the femoral shaft. Next, the proposed skin incision of approximately 6 cm in length was marked on the skin. The skin incision was then made with a #10 blade, going down through the skin and subcutaneous tissue. The IT-band and hip abductors were split to the greater trochanter. A guide pin was inserted in adequate position which was confirmed on AP and lateral imaging. An opening reamer was placed over the guide wire and pushed down to the lesser trochanter. Serial reaming was performe d to provided placement of the long nail.The above mentioned nail was introduced into the canal. Next a guide wire was placed in preparation for the lag screw. The wire was visualized in proper AP and Lateral position. The guidewire was measured and the neck and head were reamed over the guidewire. The above mentioned lag Screw was placed in adequate position. The set screw was then placed. The distal screws were then focused on. Using [employer], the distal screws was drilled and the above mentioned screw was introduced to lock the screw distally. The guides were then removed, final imaging was obtained demonstrating the hardware in adequate position. The incisions were closed deep with vicryl and monocryl on the skin. The incisions were cleaned and dressed with Aquacel. The patient was then gently transferred back to the hospital bed and transferred to recovery without difficulty. DO [facility]
--- NOTE | 2020-04-26 15:51 | NUR ---
Pt received from [facility]U at this time. Pt is aox2 his baseline, breaths are even and unlabored on oxygen 2L/NC a this time. Dressing to left hip and left elbow are dry and intact. Pt denies any pain at this time.
[2020-04-26] MEDS: MEMANTINE 10 MG TAB PO SCH (17:33)
--- NOTE | 2020-04-26 17:51 | History and Physical ---
PCP: Dr. Salbador [place]. CHIEF COMPLAINT: Status post fall with left hip pain. HISTORY OF PRESENT ILLNESS: This is an 84-year-old male with past medical history of diabetes, hypertension, BPH, hypothyroidism, and Alzheimer's, presented to the ER after a fall while using the restroom. According to has had gait imbalance and sustained a fall in the past with right hip surgery and this time with left hip pain. There was no report of fever, chills, nausea, vomiting, chest pain, feeling lightheaded or blacking out. In the ER, imaging showed that he has left acute mildly displaced intertrochanteric fracture of the left hip that extends into the subcapital region. He is admitted for further evaluation. PAST MEDICAL HISTORY: 1. Diabetes type 2. 2. High blood pressure. 3. Hypothyroidism. 4. Benign prostatic hypertrophy. 5. Alzheimer's. PAST SURGICAL HISTORY: He has had right hip ORIF and bilateral cataract surgery. FAMILY MEDICAL HISTORY: Reports brother has prostate cancer, but mother and father unknown. SOCIAL HISTORY: Denies any tobacco, alcohol, or illicit drug use. ALLERGIES: NO KNOWN DRUG ALLERGIES. REVIEW OF SYSTEMS: Ten systems reviewed and negative except as reported in the HPI. PHYSICAL EXAMINATION: VITAL SIGNS: Temperature 98.1, pulse is 77, respirations 20, blood pressure 116/68, pulse ox is 96% on room air. GENERAL: No acute distress. HEENT: Normocephalic and atraumatic. NECK: Supple. LUNGS: Clear to auscultation. CARDIOVASCULAR: Regular rate and rhythm. GI: Soft and nontender. NEUROLOGIC: Alert, awake, and oriented x1-2. MUSCULOSKELETAL: Left lower extremity pain with movement. SKIN: Dry and intact. PSYCH: Calm. LABORATORY DATA: WBC 11.37, hemoglobin 12.1, hematocrit 34.7, and platelet 140. Sodium 138, potassium 3.9, BUN 12, creatinine 0.74, estimated GFR greater than 60, blood glucose 163, and calcium 8.1. Lipase 52 and amylase 153. PT 14.4, INR 1.0, and APTT 35.9. UA is negative. COVID PCR is negative. CT brain and C-spine negative for acute process. Left elbow shows a tiny krishna of ossific density with adjacent soft tissue swelling at the lateral, may represent a ligamentous avulsion, injury, or chronic epicondylitis. Correlate with point tenderness, otherwise no fracture. Chest x-ray is negative. Left femur x-ray shows no fracture of the left femoral shaft, re-demonstrated acute intertrochanteric hip fracture. IMPRESSION AND PLAN: 1. Status post fall with left intertrochanteric fracture of the left hip. CT brain and C-spine negative for acute process. Orthopedics had been consulted. Pain management as needed. We will keep n.p.o. for surgery. 2. Diabetes. Sliding scale insulin. 3. Mild leukocytosis, likely reactive. We will continue to monitor. 4. Hypertension. Now stable. We will hold his home metoprolol for now. 5. Benign prostatic hyperplasia. Continue tamsulosin. 6. Alzheimer's. We will resume Namenda. 7. Gastrointestinal and deep venous thrombosis prophylaxis. Heparin was given x1 last night. No anticoagulation pending surgery today. Dictated by JACQUELINE Ratliff Remigio Myers MD MY/MODL /[id number]
--- NOTE | 2020-04-26 19:33 | NUR ---
Received change of shift report from AM nurse. Walking rounds completed.
[2020-04-26] MEDS: TRAZODONE HCL 50 MG TAB PO SCH (21:00)
[2020-04-26] MEDS: TAMSULOSIN HCL 0.4 MG CAP PO SCH (21:00)
[2020-04-26] MEDS: CEFAZOLIN SOD 2 GM/D5W 50ML 50 ML IV SCH (21:33)
[2020-04-26] MEDS: ONDANSETRON HCL INJ 2MG/ML 2ML 2 MG/ML VIAL IV PRN (21:35)
[2020-04-26] MEDS ORDERED: CEFAZOLIN SOD 1 GM VIAL IV SCH (22:00)
[2020-04-27] VITALS (8 sets, daily range): BP systolic 97–113; BP diastolic 66–85
--- NOTE | 2020-04-27 | NUR ---
Patient resting quitly at this time. Received pain and nausea med. Continue monitor.
[2020-04-27] MEDS: ONDANSETRON HCL INJ 2MG/ML 2ML 2 MG/ML VIAL IV PRN ×2 (03:41→23:25)
[2020-04-27] MEDS: MORPHINE SULFATE INJ 4 MG/ML INJ 1ML IV PRN ×2 (03:41→23:25)
[2020-04-27] MEDS: CEFAZOLIN SOD 2 GM/D5W 50ML 50 ML IV SCH ×3 (05:22→22:00)
[2020-04-27 05:33] LABS: BASOPHILS % 0.2 % (0.0-1.0); EOSINOPHILS % 0.1 % (0.0-6.0); HEMATOCRIT 27.1 % (38.2-49.6); LYMPHOCYTES # (AUTO) 1.3 (1.0-3.2); LYMPHOCYTES % 11.2 % (18.0-39.1); MEAN CORPUSCULAR HEMOGLOBIN 30.4 pg (28-32); MEAN CORPUSCULAR HGB CONC 33.2 g/dL (31-35); MEAN CORPUSCULAR VOLUME 91.6 fL (81-99); MONOCYTES # (AUTO) 1.8 (0.2-0.8); MONOCYTES % 15.3 % (4.4-11.3); NEUTROPHILS # (AUTO) 8.5 (2.1-6.9); NEUTROPHILS % 72.5 % (38.7-80.0); PLATELET COUNT 137 x10e3/uL (140-360); RED BLOOD COUNT 2.96 x10e6/uL (4.3-5.7); RED CELL DISTRIBUTION WIDTH 17.2 % (11.7-14.4)
[2020-04-27] MEDS: SODIUM CHLORIDE 0.9% 1000ML 1,000 ML IV SCH ×3 (06:30→22:30)
--- NOTE | 2020-04-27 07:00 | NUR ---
BEDSIDE SHIFT REPORT RECEIVED PT IN STABLE CONDITION DENIES PAIN AT THIS TIME, UPDATED ON POC VOICED UNDERSTANDING, LEFT DSG TO HIP C/D/I, IVF INFUSING TO R AC 20G NO SS OF INFILTRATION NOTED NO OTHER CO VOICED CALL LIGHT INR EACH WILL CONTINUE OT MONITOR
--- NOTE | 2020-04-27 07:13 | NUR ---
ORTHOPEDIC PROGRESS NOTE Patient seen & examined. Pain controlled. Participated in PT. Doing well overal. Patient very somnolent. VS T 98.6 HR 110 RR 18 BP 105/78 O2 92% Left Hip - dressing clean, dry and intact. Motor: + EHL, FHL, TA, G/S Sensation grossly intact to light touch Pulses + DP, Post tib Compartments soft Negative calf tenderness H/H 9.0/27.1 84 year old M s/p Left hip IMN POD#1 -Analgesics -DVT Prophylaxis -PT - WBAT -F/U am labs -If H/H remains stable, patient orthopedically stable for discharge tomorrow -If dressing becomes saturated, recommend new aquacel prior to discharge. Discharge instructions -Keep aquacel dressing on for at least 1 week. May discontinue if dressing becomes soiled or loose. -Change to dry dressings after 1 week -Analgesics PRN, Patient can call office for analgesics as needed -WBAT -Continue DVT Prophylaxis -Discussed plan with family at bedside. -Follow up in office in 2 weeks. Call for appointment. Thank you for the consultation Smiley Mancera, DO [facility].
[2020-04-27] MEDS: INSULIN REGULAR, HUMAN 100 UNIT/1 ML 3ML VIAL SQ SCH ×4 (07:30→21:00)
[2020-04-27] MEDS: MEMANTINE 10 MG TAB PO SCH ×2 (09:00→17:09)
[2020-04-27] MEDS: HYDROCODONE/APAP 5MG-325MG TAB PO PRN ×2 (09:50→17:12)
[2020-04-27] MEDS: METOPROLOL TARTRATE 25 MG TAB PO SCH (14:41)
--- NOTE | 2020-04-27 16:04 | NUR ---
Spoke to Josselin at bedside regarding home health. She states to use any company in network with insurance. Pt has not had home health previously. Choice letter signed for [facility], [facility], and [facility]. Copy of choice letter given to pt's . Pt's was requesting a hospital bed. CM explained to her that we may not be able to get one, may need additional documentation from PCP, but that we will initiate the order. She verbalized understanding. Choice letter signed for [facility] and [facility]. Copy given to pt's . IMM letter discussed. verbalized understanding. Copy to . Signed choice letters and IMM placed in chart. Hospital bed order faxed to [facility] at [phone] / P [phone]. Saundra with [facility] was notified of referral. Home health order and clinical sent to [facility]. Yael with [facility] was notified of referral. / F [phone]
[2020-04-27] MEDS ORDERED: ENOXAPARIN SOD INJ 40 MG/0.4 ML SYR SC SCH (17:00)
--- NOTE | 2020-04-27 18:04 | NUR ---
Nutrition Screen Note RD Recommendation for Physician: - Continue current diet Plan of Care: RD following, monitoring for tolerance and adequacy Nutrition reason for involvement: Nutrition risk trigger- MST2 Primary Diagnose(s): L hip fx, abrasion of L elbow PMH: DM, HTN, hypothyroidism, Alzheimer's, R hip ORIF Ht: 66 in Wt: 175 lb BMI: 28.2 kg/m2 IBW: [address] Assessment: (04/27) 84 YOM admitted for L hip fx s/p fall, evaluated today for MST2. Pt with no reported wt loss or poor po intake. Noted good intake for lunch today. No GI distress currently, BM today. Pt s/p L hip IMN and pending discharge home tomorrow. Chart reviewed. Labs and meds reviewed. Will continue to monitor. Current Diet: 1800 ADA Malnutrition Evaluation (04/27/20) The patient does not meet criteria for a specified degree of malnutrition at this time. Will re-evaluate at follow-up as appropriate. Diet Education Needs Assessment: Diet education not indicated. Diet tolerance: tolerating po Nutrition Care Level: low Signed: Ashley Barnes RD, LD, [facility]
--- NOTE | 2020-04-27 19:18 | NUR ---
bedside shift report given to oncoming rn, pt left in stable condition, no other co vocied, denies pain call light in reach will continue to monitor
--- NOTE | 2020-04-27 20:00 | NUR ---
Received change of shift report from AM nurse. Walking rounds completed.
[2020-04-27] MEDS: TRAZODONE HCL 50 MG TAB PO SCH (21:00)
[2020-04-27] MEDS: TAMSULOSIN HCL 0.4 MG CAP PO SCH (21:00)
--- NOTE | 2020-04-27 23:43 | Consultation ---
DATE OF CONSULTATION: REASON FOR CONSULTATION: Tachycardia. CHIEF COMPLAINT: Fall with left hip fracture. CONSULTING PHYSICIAN: Remigio Myers MD HISTORY OF PRESENT ILLNESS: This is an 84-year-old gentleman with a past medical history of Alzheimer's, dementia, hypothyroidism, diabetes mellitus, hypertension, and BPH, who presented to the ER on the evening of April 25 with a mechanical witnessed fall without loss of consciousness. The patient suffered a left hip fracture as well as a left elbow abrasion. Due to the left hip fracture, the patient was taken to the operating room and had this fixed. Of note, the patient has a prior history of right hip surgery. We are consulted in the setting of tachycardia, obtained in the setting of working with therapy and to further delineate the cause of this. When speaking to the patient, he reports left hip discomfort as well as bruising, however, he denies a personal cardiac history. He reports that he lives with a child at home. He denies any chest pain, shortness of breath, or presyncopal or syncopal symptoms presently. Review of his EKG shows that this was read as a junctional tachycardia, however, there are notable P-waves present. Thus, this is a sinus tachycardia. Review of his labs indicate a hemoglobin of 9.0 from admission at 14.1. The patient's blood pressure has been in the 100 systolic range and he is now resumed on metoprolol 25 mg b.i.d. PAST MEDICAL HISTORY: Type 2 diabetes mellitus, hypertension, hypothyroidism, benign prostatic hypertrophy, and Alzheimer's. PAST SURGICAL HISTORY: Prior right hip open reduction and internal fixation as well as bilateral cataract surgery, and left hip surgery this admission. FAMILY HISTORY: Brother with prostate cancer, no really family history of coronary artery atherosclerosis. SOCIAL HISTORY: Denies current tobacco, alcohol, or illicit drug use. ALLERGIES: NO KNOWN DRUG ALLERGIES. REVIEW OF SYSTEMS: With positive fatigue. Negative chills. No visual blurriness or eye pain. No ear pain or tinnitus. No chest pain. No dyspnea with exertion. No hemoptysis. No wheezing. No abdominal tenderness. No vomiting. No nausea. Positive joint pain. Positive muscle pain. Positive bruising. Positive bleeding. Positive rash. Negative focal weakness. Negative confusion. Positive dementia. HOME MEDICATIONS: Include tamsulosin 0.4 mg daily, memantine 10 mg b.i.d., trazodone 150 mg q.h.s. and per verbal report from the daughter, the patient is on metoprolol at home. PHYSICAL EXAMINATION: VITAL SIGNS: Afebrile, temperature 98.9 Fahrenheit, pulse 113 beats per minute, blood pressure 108/72, respirations 14, SPO2 93, height 5 feet 6 inches, weight is 175 pounds. BMI 28. GENERAL: The patient is resting comfortably in bed, in no acute distress. He is pleasant and conversant. HEENT: Normocephalic, atraumatic. Normal conjunctivae. No jaundice. Moist mucous membranes. NECK: Midline. No cervical lymphadenopathy. No JVD. LUNGS: Clear to auscultation bilaterally. No wheezes. CARDIOVASCULAR: Regular rhythm. Tachycardic. No significant murmurs appreciated. No rubs. No gallops. GI: Soft and nontender. Normal bowel sounds. NEUROLOGIC: He is alert and awake. He has normal speech. MUSCULOSKELETAL: He has significant left lower extremity pain as well as left hip bruising and postoperative changes. SKIN: Left hip bruising and postoperative changes. Otherwise, dry and intact. PSYCHIATRIC: Calm. He appears to have normal affect, however, he is not asked about orientation. LABORATORY DATA: Include sodium 138, potassium 3.9, chloride 109, bicarbonate 18, BUN 12 and creatinine 0.74, glucose 163. White blood cell count of 11.6, hemoglobin 9.0 from 14.1 at admission, hematocrit 27.1 and platelets 137. INR 1.07. AST 48 and ALT 36. Total bilirubin 0.5, alkaline phosphatase 104. No TSH noted within the system. Additional studies include EKG, which at admission is normal sinus rhythm and the tachycardia appears to be sinus tachycardia with discernible P-waves visualized. Chest x-ray is largely unremarkable for the most part. IMPRESSION AND PLAN: 1. Status post fall with left intertrochanteric fracture of the left hip, status post surgical management. Continue care per them. 2. Tachycardia. This appears to be sinus in etiology with normal P-waves. Continue to monitor. The patient is now started on metoprolol 25 mg b.i.d. Note the blood pressure and consider further titration. If it is possible, obtain TSH, obtain echocardiogram to monitor the heart function. His tachycardia is likely reactive in nature secondary to pain as well as anemia with hemoglobin drops in this admission. Continue to monitor reversible causes. 3. Mild leukocytosis likely reactive in the setting of his stress response. 4. Hypertension. He is actually normotensive presently. Continue to monitor the blood pressure with metoprolol therapy. 5. Benign prostatic hypertrophy. He is on tamsulosin. 6. Alzheimer's/dementia. Care per primary. We will continue to follow along. MD Tony StokesJ/MODL /[id number]
[2020-04-28 00:25] VITALS: BP 113/66
--- NOTE | 2020-04-28 02:43 | Progress Note ---
DATE: 04/27/2020 CONSULTANTS: 1. Dr. Gerard, Orthopedics. 2. Dr. Bagley, Cardiology. CHIEF COMPLAINT: Status post fall with left hip fracture. SUBJECTIVE: The patient status post left hip surgery, reports pain with movement of the left lower extremity. He is noted to have tachycardia with heart rate of 130s. Cardiology was consulted. The patient denies chest pain, but he is demented. He does not appear to be in any acute distress, no shortness of breath, fever, or chills. at bedside discussed about wanting to take him home with home health upon discharge. PHYSICAL EXAMINATION: VITAL SIGNS: Temperature 97.6, pulse 130, respirations 20, blood pressure 110/70, pulse oximeter 95% on 2 L of nasal cannula. GENERAL: No acute distress. HEENT: Normocephalic, atraumatic. NECK: Supple. CARDIOVASCULAR: Tachycardia, regular rate. LUNGS: Clear to auscultation. ABDOMEN: Soft and nontender. NEUROLOGIC: Alert, awake, and oriented times 1 to 2 due to dementia. MUSCULOSKELETAL: Left lower extremity dressing intact. Pain with movement. SKIN: Dry and intact. LABORATORY DATA: WBC 11.65, hemoglobin 9.0, hematocrit 27.1, platelet 137,000. Sodium 138, potassium 3.9, CO2 18, BUN 12, creatinine 0.74, estimated GFR is greater than 60 blood glucose 163, calcium 8.1. IMPRESSION: 1. Status post fall with left hip fracture. Status post surgery per Dr. Aguilar, Orthopedics. Pain management as needed, PT to evaluate and treat. 2. Mild leukocytosis. We will continue to monitor closely. Afebrile. 3. Tachycardia. We will consult Cardiology for further evaluation. TSH and echo ordered. 4. Diabetes type 2. Sliding scale insulin before meals and at bedtime. 5. Hypertension now hypotensive. We will resume metoprolol at 25 mg b.i.d. 6. Benign prostatic hypertrophy. Continue Flomax. 7. Anemia likely due to surgery. We will continue to monitor closely. CBC in a.m. 8. Alzheimer's. We will continue Namenda. 9. GI and DVT prophylaxis. PPI and Lovenox per Orthopedics. We will however monitor his CBC closely. PLAN: To continue physical therapy, repeat labs at a.m., PT to evaluate and treat, Cardiology evaluation pending. Dictated by Juana Herrera, ANP MD JOSE Bautista/AMARI /[id number]
[2020-04-28 05:29] VITALS: BP 113/66
[2020-04-28 05:37] LABS: ALANINE AMINOTRANSFERASE 12 IU/L (0-55); ALBUMIN 3.1 g/dL (3.5-5.0); ALBUMIN/GLOBULIN RATIO 1.1 (0.8-2.0); ALKALINE PHOSPHATASE 70 IU/L (40-150); ANION GAP 10.6 mmol/L (8-16); BLOOD UREA NITROGEN 11 mg/dL (7-26); BUN/CREATININE RATIO 14 (6-25); CALCIUM 7.9 mg/dL (8.4-10.2); CARBON DIOXIDE 23 mmol/L (22-29); CHLORIDE 106 mmol/L (98-107); EST GLOMERULAR FILTRATION RATE > 60 ML/MIN (60-); GLUCOSE 146 mg/dL (74-118); POTASSIUM 3.6 mmol/L (3.5-5.1); SODIUM 136 mmol/L (136-145)
[2020-04-28] MEDS: CEFAZOLIN SOD 2 GM/D5W 50ML 50 ML IV SCH ×3 (05:49→22:00)
[2020-04-28] MEDS: ONDANSETRON HCL INJ 2MG/ML 2ML 2 MG/ML VIAL IV PRN (05:50)
[2020-04-28] MEDS: MORPHINE SULFATE INJ 4 MG/ML INJ 1ML IV PRN (05:50)
[2020-04-28 06:15] LABS: BASOPHILS % 0.1 % (0.0-1.0); EOSINOPHILS % 0.1 % (0.0-6.0); HEMATOCRIT 22.4 % (38.2-49.6); HEMOGLOBIN 7.6 g/dL (14.0-18.0); LYMPHOCYTES % 11.3 % (18.0-39.1); MEAN CORPUSCULAR HEMOGLOBIN 30.8 pg (28-32); MEAN CORPUSCULAR HGB CONC 33.9 g/dL (31-35); MEAN CORPUSCULAR VOLUME 90.7 fL (81-99); MONOCYTES # (AUTO) 1.1 (0.2-0.8); MONOCYTES % 12.6 % (4.4-11.3); NEUTROPHILS # (AUTO) 6.3 (2.1-6.9); NEUTROPHILS % 75.3 % (38.7-80.0); PLATELET COUNT 110 x10e3/uL (140-360); RED BLOOD COUNT 2.47 x10e6/uL (4.3-5.7); RED CELL DISTRIBUTION WIDTH 16.8 % (11.7-14.4)
[2020-04-28] MEDS: SODIUM CHLORIDE 0.9% 1000ML 1,000 ML IV SCH (06:30)
--- NOTE | 2020-04-28 07:00 | NUR ---
ASSUMED CARE. AWAKE AND ALERT. ACYANOTIC. NO DISTRESS NOTED. CALL LIGHT IN REACH. SIDE RAILS UP X2. BED LOW AND LOCKED.
[2020-04-28 08:00] VITALS: BP 104/69
--- NOTE | 2020-04-28 08:17 | NUR ---
Received message from Saundra with [facility] yesterday evening. States they will deliver hospital bed today. Spoke Yael with [facility]. States they are unable to accept pt due to insurance. Referral was sent to [facility]
[2020-04-28] MEDS: INSULIN REGULAR, HUMAN 100 UNIT/1 ML 3ML VIAL SQ SCH ×4 (08:30→21:00)
[2020-04-28] MEDS: MEMANTINE 10 MG TAB PO SCH ×2 (08:41→18:00)
[2020-04-28] MEDS: METOPROLOL TARTRATE 25 MG TAB PO SCH ×2 (08:41→17:00)
[2020-04-28] MEDS ORDERED: FUROSEMIDE INJ 10 MG/ML 2 ML VIAL IV ONE (11:00)
[2020-04-28] MEDS ORDERED: SODIUM CHLORIDE 0.9% 250ML 250 ML IV ONE (11:00)
--- NOTE | 2020-04-28 11:35 | NUR ---
Spoke with Vero at [facility]. States they will be able to accept pt. CM informed her that pt is not discharging today. Will update them once pt does discharge. HH information printed and given to pt's at bedside w/ instructions to call company if they do not hear from them within 24 hrs of discharge. [facility]
[2020-04-28] MEDS: HYDROCODONE/APAP 5MG-325MG TAB PO PRN ×2 (11:40→18:15)
[2020-04-28 12:00] VITALS: BP 108/50
[2020-04-28 12:33] LABS: HEMATOCRIT 21.8 % (38.2-49.6); HEMOGLOBIN 7.2 g/dL (14.0-18.0)
[2020-04-28] MEDS ORDERED: SODIUM CHLORIDE 0.9% 250ML 250 ML ONE (16:17)
[2020-04-28 16:35] VITALS: BP 112/63
[2020-04-28 20:00] VITALS: BP 105/74
--- NOTE | 2020-04-28 20:00 | NUR ---
INITIAL ASSESSMENT COMPLETE, BEDSIDE REPORT TAKEN, PT IN BED, BLOOD FINISHED, TOLERATED WELL, PT IS TELUGU SPEAKING ONLY, LEFT LEG BRUISED, DRESSING INTACT, PT USING URINAL NEEDED, VS WNL, NO DISTRESS NOTED, CALL LIGHT IN REACH
[2020-04-28] MEDS ORDERED: FUROSEMIDE INJ 10 MG/ML 4 ML VIAL ONE (20:11)
[2020-04-28] MEDS: TAMSULOSIN HCL 0.4 MG CAP PO SCH (21:00)
[2020-04-28] MEDS: TRAZODONE HCL 50 MG TAB PO SCH (21:00)
[2020-04-28] MEDS: HYDROCODONE/APAP 10MG-325MG TAB PO PRN (22:10)
[2020-04-29] VITALS (8 sets, daily range): BP systolic 98–122; BP diastolic 58–77
--- NOTE | 2020-04-29 | NUR ---
PT IN BED, PLATING EQUIPMENT TENDER USED TO COMMUNICATE WITH PT, PAIN MEDS GIVEN EARLIER, PT IS FEELING BETTER, VS WNL, NO DISTRESS NOTED, CALL LIGHT IN REACH, WILL CONTINUE TO MONITOR PT.
--- NOTE | 2020-04-29 02:39 | Progress Note ---
DATE: 04/28/2020 CONSULTANTS: 1. Dr. Aguilar, Orthopedics. 2. Dr. Bagley, Cardiology. CHIEF COMPLAINT: Status post fall with left hip fracture. SUBJECTIVE: The patient is noted with increased left hip pain and swelling, some bruising noted around the surgical area. He denies any nausea, vomiting, chest pain, or shortness of breath. PHYSICAL EXAMINATION: VITAL SIGNS: Temperature 98.1, pulse is 87, respirations 18, blood pressure 108/50, pulse ox is 95% on 2 L of nasal cannula. GENERAL: Fatigue. HEENT: Normocephalic, atraumatic. NECK: Supple. CARDIOVASCULAR: Regular rate and rhythm. LUNGS: Clear to auscultation. ABDOMEN: Soft and nontender. NEUROLOGIC: Alert, awake, and oriented times 1 to 2. MUSCULOSKELETAL: Left lower extremity swelling and pain due to hip fracture. SKIN: Dry. Some bruising noted in the left hip. PSYCH: Calm. LABORATORY DATA: WBC 8.38, hemoglobin 7.6, hematocrit 22.4, platelet 110,000. Sodium 136, potassium 3.6, BUN is 11, creatinine 0.8. Estimated GFR is greater than 60, calcium 7.4, AST 18, ALT 12, albumin is 3.1. IMPRESSION: 1. Status post fall with left hip fracture, status post IM rodding per Orthopedics, Dr. Aguilar. Pain management as needed and physical therapy to evaluate and treat, has increased swelling and pain. 2. Mild leukocytosis. Afebrile, resolved. 3. Acute anemia, likely due to surgery with tachycardia. 4. Tachycardia. Cardiology was consulted. TSH within normal limits, echo pending. 5. Acute anemia, likely due to surgery. Hemoglobin is down to 7.6 today with tachycardia likely due to anemia. Lovenox discontinued and will transfuse 1 unit of PRBCs. 6. Diabetes type 2. Sliding scale insulin before meals and at bedtime. 7. Hypertension, now hypotensive. We will continue to monitor on metoprolol. 8. Benign prostatic hypertrophy. Continue Flomax. 9. Alzheimer's. Continue Namenda. 10. GI and DVT prophylaxis. Lovenox has been held due to anemia. Dr. Aguilar made aware. Okay to hold anticoagulation for now until stabilizes, we will continue to monitor CBC. PLAN: To transfuse 1 unit of PRBC, repeat labs in a.m. Dictated by Juana Herrera, ANP MD JOSE Bautista/AMARI /[id number]
[2020-04-29] MEDS: HYDROCODONE/APAP 10MG-325MG TAB PO PRN ×3 (05:30→21:13)
[2020-04-29 05:33] LABS: BASOPHILS % 0.3 % (0.0-1.0); EOSINOPHILS % 0.1 % (0.0-6.0); HEMATOCRIT 24.1 % (38.2-49.6); HEMOGLOBIN 8.1 g/dL (14.0-18.0); LYMPHOCYTES # (AUTO) 1.3 (1.0-3.2); LYMPHOCYTES % 15.7 % (18.0-39.1); MEAN CORPUSCULAR HEMOGLOBIN 30.2 pg (28-32); MEAN CORPUSCULAR HGB CONC 33.6 g/dL (31-35); MEAN CORPUSCULAR VOLUME 89.9 fL (81-99); MONOCYTES # (AUTO) 0.8 (0.2-0.8); MONOCYTES % 9.5 % (4.4-11.3); NEUTROPHILS # (AUTO) 5.8 (2.1-6.9); NEUTROPHILS % 72.8 % (38.7-80.0); PLATELET COUNT 113 x10e3/uL (140-360); RED BLOOD COUNT 2.68 x10e6/uL (4.3-5.7); RED CELL DISTRIBUTION WIDTH 16.9 % (11.7-14.4)
[2020-04-29] MEDS: CEFAZOLIN SOD 2 GM/D5W 50ML 50 ML IV SCH ×4 (05:52→22:24)
[2020-04-29 06:00] LABS: ANION GAP 11.5 mmol/L (8-16); BLOOD UREA NITROGEN 10 mg/dL (7-26); BUN/CREATININE RATIO 13 (6-25); CALCIUM 7.8 mg/dL (8.4-10.2); CARBON DIOXIDE 27 mmol/L (22-29); CHLORIDE 103 mmol/L (98-107); CREATININE, SERUM 0.77 mg/dL (0.72-1.25); EST GLOMERULAR FILTRATION RATE > 60 ML/MIN (60-); GLUCOSE 148 mg/dL (74-118); POTASSIUM 3.5 mmol/L (3.5-5.1); SODIUM 138 mmol/L (136-145)
--- NOTE | 2020-04-29 06:11 | NUR ---
PT IN BED, PAIN MEDICINE GIVEN EARLIER, STATES IT IS WORKING, STRAIGHTENED UP IN BED, IV INFUSING, NO DISTRESS NOTED, CALL LIGHT IN REACH, WILL CONTINUE TO MONITOR PT
--- NOTE | 2020-04-29 07:00 | NUR ---
ASSUMED CARE. ACYANOTIC. AWAKE AND ALERT. RESTING IN BED. NO DISTRESS NOTED. CALL LIGHT IN REACH. SIDE RAILS UP X2. BED LOW AND LOCKED. BED ALARM NOTED.
[2020-04-29] MEDS: INSULIN REGULAR, HUMAN 100 UNIT/1 ML 3ML VIAL SQ SCH ×4 (08:30→21:30)
[2020-04-29] MEDS: METOPROLOL TARTRATE 25 MG TAB PO SCH ×2 (09:07→17:30)
[2020-04-29] MEDS: MEMANTINE 10 MG TAB PO SCH ×2 (09:07→17:30)
[2020-04-29] MEDS: MORPHINE SULFATE INJ 4 MG/ML INJ 1ML IV PRN (13:05)
--- OUTSIDE RECORDS SUMMARY | 2020-04-29 18:33 | XMS REPORT | Continuity of Care Document ---
Author Author [facility] t Organization [facility] Address [address] [place] [address] Phone Unavailable Care Team Providers Care Neurology Technologist Name Role Phone RADHA GARCÍA PCP Haily DASHCHING Attphys Unavailable KOUSSLUCAS TARSATISH Attphys Unavailable RADHA GARCÍA Attphys Unavailable AIMETTEESTEE Attphys Unavailable Haily DASH YICHING Admphys Unavailable Payers Payer Name Policy Type Policy Number Effective Date Expiration Date [facility] [id number] 2018 00:00 :00 [facility] [id number] 2016 00:00:00 [facility] Problems Condition Name Condition Details Condition Category Status Onset Date Resolution Date Last Treatment Date Treating Clinician Comments Source Urinary tract infection Problem Active [facility] Allergies, Adverse Reactions, Alerts This patient has no known allergies or adverse reactions. Social History Social Habit Start Date Stop Date Quantity Comments Source Sex Assigned At 1935 00:00:00 1935 00:00:00 Male [facility] Medications Ordered Medication Name Filled Medication Name Start Date Stop Da te Current Medication? Ordering Clinician Indication Dosage Frequency Signature (SIG) Comments Components Source Memantine Hcl (Namenda) 10 Mg TABLET Memantine Hcl (Namenda) 10 Mg TABLET Yes 10 Twice A Day [facility] Metformin Hcl Metformin Hcl Yes 1000 Bedtime [facility] Tamsulosin Hcl Tamsulosin Hcl Yes Bedtime [facility] Trazodone Trazodone Yes 150 Bedtime [facility] Vital Signs Vital Name Observation Time Observation Value Comments Source Weight 2020-03-29 17:24:00 175 [lb_av] [facility] BMI (Body Mass Index) 2020-03-29 17:24:00 28.2 kg/m2 [facility] Procedures Procedure Date / Time Performed Performing Clinician Eloina berrios CT of abdomen and pelvis without contrast 2020-03-29 00:00:00 [facility] Plan of Care Planned Activity Planned Date Details Comments Source Instructions Urinary Tract Infection - Men [facility] Encounters Start Date/Time End Date/Time Encounter Type Admission Type Attendi [facility] Facility Care Department Encounter ID Source 2020-03-29 17:20:00 2020-03-29 20:20:00 Departed Emergency Room [address] [facility] [id number] I [facility] Results Test Description Test Time Test Comments Results Result Comments Source FEMUR 2 VIEWS MINIMUM LEFT 2020-04-25 23:41:00 [facility] 1935 Sex: [place] [address] Patient Name: MART ANTOINE MR #: [id number] : 1935 Age/Sex: 84/M Req #: [id number] Adm Physician: IRAJ DASH MD Ordered by: PHILLIP ANDRES MD Report #: [id number] Location: MED/SURG2 Room/Bed: [facility] Procedure: [id number] DX/FEMUR 2 VIEWS MINIMUM LEFT Exam Date: Exam Time: REPORT STATUS: Signed FEMUR 2 VIEWS MINIMUM LEFT - 3 views HISTORY: Pain. Fall COMPARISON: Radiograph from today. FINDINGS: Redemonstrated intertrochanteric left hip fracture. Redemonstrated chronic fracture deformity of the inferior pubic ramus. No acute fracture of the left femoral shaft. IMPRESSION: 1. No acute fracture of the left femoral shaft. 2. Redemonstrated acute intertrochanteric hip fracture. Signed by: Vern Marks MD on 04/25/2020 11:43 PM Dictated By: VERN MARKS MD 42 Transcribed By: KYM on 04/25/202342 COPY TO: PHILLIP ANDRES MD CHEST SINGLE (PORTABLE) 2020-04-25 23:16:00 [facility] : 1935 Sex: [place] [address] Patient Name: MART ANTOINE MR #: [id number] : 1935 Age/Sex: 84/M Req #: [id number] [facility] Physician: IRAJ DASH MD Ordered by: PHILLIP ANDRES MD Report #: [id number] Location: [facility] Room/Bed: [place] [address] Procedure: [id number] DX/CHEST SINGLE (PORTABLE) Exam Date: 04/25/20 Exam Time: 2244 REPORT STATUS: Signed EXAMINATION: CHEST SINGLE (PORTABLE) INDICATION: PRE OP 20200425 Y COMPARISON: X-ray 04/07/2016 FINDINGS: TUBES and LINES: None. LUNGS: Low lung volumes, likely accentuated interstitial pulmonary markings. No consolidations. PLEURA: No pleural effusion or pneumothorax. HEART AND MEDIASTINUM: The cardiomediastinal silhouette is unremarkable. BONES AND SOFT TISSUES: No acute osseous lesion. Soft tissues are unremarkable. UPPER ABDOMEN: No free air under the diaphragm. IMPRESSION: No acute thoracic abnormality. Signed by: Vern Marks MD on 04/25/2020 11:18 PM Dictated By: VERN MARKS MD 17 Transcribed By: KYM on 04/25/202317 COPY TO: PHILLIP ANDRES MD CT CERVICAL SPINE WO 2020-04-25 22:03:00 [facility] : 1935 Sex: M [facility] [address] [place] [address] Patient Name: MART ANTOINE MR #: [id number] : 1935 Age/Sex: 84/M Req #: [id number] Adm Physician: Ordered by: PHILLIP ANDRES MD Report #: [id number] Location: ER Room/Bed: Procedure: [id number] CT/CT CERVICAL SPINE WO Exam Date: Exam Time: REPORT STATUS: Signed EXAMINATION: Head and cervical spine CT without contrast. HISTORY: 84-year-old male status post fall, trauma, pain COMPARISON: None. TECHNIQUE: Multidetector axial images were obtained without contrast from the foramen magnum to the vertex and through the cervical spine. Dose modulation, iterative reconstruction, and/or weight based adjustment of the mA/kV was utilized to reduce the radiation dose to as low as reasonably achievable. HEAD CT FINDINGS: Skull/scalp: No lytic or blastic lesions. No fractures. Parenchyma: Normal. No mass, hemorrhage or CT evidence of acute vascular insult. Brain volume: Normal for age. Ventricles: No hydrocephalus or displacement. 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 Dural sinuses: No abnormal density. Extra-axial spaces: No abnormal density. Foramen magnum: No mass, Chiari malformation, or basilar invagination. Sella: No obvious mass. Paranasal/mastoid sinuses: Imaged portions unremarkable. CERVICAL SPINE CT FINDINGS: Alignment:Normal alignment and lordosis. Soft tissues: Normal. Vertebrae: Minimal chronic compression deformity of the C5, C6 and C7 vertebral bodies, which may represent sequela from old trauma or be related to osteopenia/osteoporosis. Otherwise normal height. No acute fracture, infection or neoplasm. Degenerative changes: No significant degenerative changes, no spinal canal or foraminal stenosis. IMPRESSION: Head CT: No acute posttraumatic intracranial abnormalities, particularly no hemorrhage. Cervical spine CT: 1. No acute fractures or dislocations. 2. Diffuse osteopenia and minimal chronic compression deformity from C5 to C7 vertebral bodies. Note: Acute post traumatic spinal cord, vascular or ligamentous injury cannot adequately be assessed with CT. Signed by: Dr. Meghan Villarreal M.D. on 04/25/2020 10:09 PM Dictated By: MEGHAN VILLARREAL MD 08 Transcribed By: KYM on 04/25/202208 COPY TO: PHILLIP ANDRES MD CT BRAIN WO 2020-04-25 22:03:00 [facility] : 1935 Sex: [place] [address] Patient Name: MART ANTOINE MR #: [id number] : 1935 Age/Sex: 84/M Req #: [id number] [facility] Physician: Ordered by: PHILLIP ANDRES MD Report #: [id number] Location: Room/Bed: Procedure: [id number] CT/CT BRAIN WO Exam Date: Exam Time: REPORT STATUS: Signed EXAMINATION: Head and cervical spine CT without contrast. HISTORY: 84-year-old male status post fall, trauma, pain COMPARISON: None. TECHNIQUE: Multidetector axial images were obtained without contrast from the foramen magnum to the vertex and through the cervical spine. Dose modulation, iterative reconstruction, and/or weight based adjustment of the mA/kV was utilized to reduce the radiation dose to as low as reasonably achievable. HEAD CT FINDINGS: Skull/scalp: No lytic or blastic lesions. No fractures. Parenchyma: Normal. No mass, hemorrhage or CT evidence of acute vascular insult. Brain volume: Normal for age. Ventricles: No hydrocephalus or displacement. 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 Dural sinuses: No abnormal density. Extra-axial spaces: No abnormal density. Foramen magnum: No mass, Chiari malformation, or basilar invagination. Sella: No obvious mass. Paranasal/mastoid sinuses: Imaged portions unremarkable. CERVICAL SPINE CT FINDINGS: Alignment:Normal alignment and lordosis. Soft tissues: Normal. Vertebrae: Minimal chronic compression deformity of the C5, C6 and C7 vertebral bodies, which may represent sequela from old trauma or be related to osteopenia/osteoporosis. Otherwise normal height. No acute fracture, infection or neoplasm. Degenerative changes: No significant degenerative changes, no spinal canal or foraminal stenosis. IMPRESSION: Head CT: No acute posttraumatic intracranial abnormalities, particularly no hemorrhage. Cervical spine CT: 1. No acute fractures or dislocations. 2. Diffuse osteopenia and minimal chronic compression deformity from C5 to C7 vertebral bodies. Note: Acute post traumatic spinal cord, vascular or ligamentous injury cannot adequately be assessed with CT. Signed by: Dr. Meghan Villarreal M.D. on 04/25/2020 10:09 PM Dictated By: MEGHAN VILLARREAL MD 08 Transcribed By: KYM on 04/25/202208 COPY TO: PHILLIP ANDRES MD HIP LEFT 2-3 VW (+/- PELVIS) 2020-04-25 21:42:00 [facility] 1935 Sex: [place] [address] Patient Name: MART ANTOINE MR #: [id number] : 1935 Age/Sex: 84/M Req #: [id number] [facility] Physician: Ordered by: PHILLIP ANDRES MD Report #: [id number] Location: ER Room/Bed: Procedure: [id number] DX/HIP LEFT 2-3 VW (+/- PELVIS) Exam Date: Exam Time: REPORT STATUS: Signed HIP LEFT 2-3 VW (+/- PELVIS) - 3 views HISTORY: Pain. Fall COMPARISON: CT dated 03/29/2020.. FINDINGS: Acute mildly displaced intertrochanteric fracture of the left hip which extends into the subcapital femoral neck region. Left femoral head articulates with the acetabulum. Old chronic fracture deformity of the left inferior pubic ramus as seen on prior CT. Partially imaged right femoral to intramedullary nail and screw fixation with adjacent heterotopic ossification. Degenerative changes of the spine. Bones are demineralized. IMPRESSION: Acute mildly displaced intertrochanteric fracture of the left hip that extends into the subcapital region. Signed by: Vern Marks MD on 04/25/2020 9:47 PM Dictated By: VERN MARKS MD 46 Transcribed By: KYM on 04/25/202146 COPY TO: PHILLIP ANDRES MD ELBOW LEFT COMPLETE 2020-04-25 21:37:00 [facility] : 1935 Sex: [place] [address] Patient Name: MART ANTOINE MR #: [id number] : 1935 Age/Sex: 84/M Req #: [id number] Adm Physician: Ordered by: PHILLIP ANDRES MD Report #: [id number] Location: ER Room/Bed: Procedure: [id number] DX/ELBOW LEFT COMPLETE Exam Date: 04/25/20 Exam Time: 2109 REPORT STATUS: Signed X-ray left elbow 3 views HISTORY: Pain. Fall COMPARISON: None available. FINDINGS: Bones: Tiny krishna of ossific ossific adjacent to the lateral condyle with adjacent soft tissue swelling. Otherwise, no acute displaced fracture. Bone demineralization. Joints: The joint spaces are well-maintained. IMPRESSION: 1. Tiny krishna of ossific density with adjacent soft tissue swelling at the lateral epicondyles may represent a ligamentous avulsion injury, or chronic epicondylitis. Correlate for point tenderness. 2. Otherwise, no acute displaced fracture or dislocation. Signed by: Vern Marks MD on 04/25/2020 9:42 PM Dictated By: VERN MARKS MD 41 Transcribed By: KYM on 04/25/202141 COPY TO: PHILLIP ANDRES MD CT ABDOMEN/PELVIS WO 2020-03-29 19:38:00 [place] [address] Patient Name: MART ANTOINE MR #: [id number] : 1935 Age/Sex: 84/M Req #: [id number] Adm Physician: Ordered by: BRANDY COBB MD Report #: [id number] Location: ER Room/Bed: Procedure: [id number] CT/CT ABDOMEN/PELVIS WO Exam Date: 03/29/20 Exam Time: 1909 REPORT STATUS: Signed EXAM: CT Abdomen and Pelvis WITHOUT contrast INDICATION: Hematuria COMPARISON: None. TECHNIQUE: Abdomen and pelvis were scanned utilizing a multidetector helical scanner from the lung base to the pubic symphysis without administration of IV contrast. Absence of intravenous contrast decreases sensitivity for detection of focal lesions and vascular pathology. Coronal and sagittal reformations were obtained. Routine protocol was performed. IV CONTRAST: None ORAL CONTRAST: None COMPLICATIONS: None RADIATION DOSE: Total DLP: 390 mGy*cm Estimated effective dose: (DLP x 0.015 x size factor) mSv C TDIvol has been reviewed. It is below the limits set by the Radiation Protocol Committee (RPC). Dose modulation, iterative reconstruction, and/or weight based adjustment of the mA/kV was utilized to reduce the radiation dose to as low as reasonably achievable. FINDINGS: LINES and TUBES: None. LOWER THORAX: There is bibasilar atelectasis. Atherosclerotic calcification of the coronary vessels. HEPATOBILIARY: No focal hepatic lesions. No biliary ductal dilation. GALLBLADDER: No radio-opaque stones or sludge. No wall thickening. SPLEEN: No splenomegaly. Multifocal calcifications which likely represent sequela of prior granulomatous infection. PANCREAS: No focal masses or ductal dilatation. ADRENALS: No adrenal nodules KIDNEYS/URETERS: No hydronephrosis. No cystic or solid mass lesions. No stones. Punctate calcifications in bilateral kidneys are favored to be vascular calcifications. GI TRACT: No abnormal distent ion, wall thickening, or evidence of bowel obstruction. Appendix is normal. PELVIC ORGANS/BLADDER: The prostate gland is enlarged measuring approximately 7.6 x 5.9 cm. LYMPH NODES: No lymphadenopathy. VESSELS: Scattered mild arterial vascular calcifications. PERITONEUM / RETROPERITONEUM: No free air or fluid. BONES: The bones are diffusely demineralized. There are degenerative changes in the spine. Partially imaged right femur intramedullary nail. No evidence of hardware complication. Healed left inferior pubic rami fracture. SOFT TISSUES: Unremarkable. IMPRESSION: 1. No obstructive renal or ureteral stones bilaterally. 2. Prostatomegaly. Signed by: Uche Awan MD on 03/29/2020 7:53 PM Dictated By: UCHE AWAN MD 52 Transcribed By: KYM on 03/29/201952 COPY TO: BRANDY COBB MD Blood leukocytes automated count (number/volume) 2020-03-29 17:56:00 Test Item White Blood Count (test code = 6690-2) 5.47 4.8-10.8 [facility] erythrocytes automated count (number/volume)2020-03-29 17:56:00* Test Item Value Reference Range Interpretation Comments Red Blood Count (test code = 789-8) 4.68 4.3-5.7 [facility] hemoglobin measurement (moles/volume)2020-03-29 17:56:00* Test Item Value Reference Range Interpretation Comments Hemoglobin (test code = 16588-4) 14.3 14.0-18.0 [facility] CampusAutomated blood hematocrit (volume fraction)2020-03-29 17:56:00* Test Item Value Reference Range Interpretation Comments Hematocrit (test code = 4544-3) 42.7 38.2-49.6 [facility] CampusAutomated erythrocyte mean corpuscular ijsmiu0972-27-98 17:56:00* Test Item Value Reference Range Interpretation Comments Mean Corpuscular Volume (test code = 787-2) 91.2 81-99 [facility] CampusAutomated erythrocyte mean corpuscular hemoglobin (mass per erythrocyte)2020-03-29 17:56:00* Test Item Value Reference Range Interpretation Comments Mean Corpuscular Hemoglobin (test code = 785-6) 30.6 28-32 [facility] CampusAutomated erythrocyte mean corpuscular hemoglobin concentration measurement (mass/volume)2020-03-29 17:56:00* Test Item Value Reference Range Interpretation Comments Mean Corpuscular Hemoglobin Concent (test code = 786-4) 33.5 31-35 [facility] CampusRDW LbwSt-Dpw2716-65-05 17:56:00* Test Item Value Reference Range Interpretation Comments Red Cell Distribution Width (test code = 55588-8) 17.2 11.7 -14.4 [facility] CampusAutomated blood platelet count (count/volume)2020-03-29 17:56:00* Test Item Value Reference Range Interpretation Comments Platelet Count (test code = 777-3) 166 140-360 [facility] CampusAutcone healthed blood segmented neutrophil count as percentage of total xcdwxylqlz2448-77-17 17:56:00* Test Item Value Reference Range Interpretation Comments Neutrophils (%) (Auto) (test code = 72491-2) 61.2 38.7-80.0 [facility] CampusAutomated blood lymphocyte count as percentage ot total oekafywhdo4374-39-40 17:56:00* Test Item Value Reference Range Interpretation Comments Lymphocytes (%) (Auto) (test code = 736-9) 31.8 18.0-39.1 [facility] CampusAutomated blood monocyte count as percentage of total inwnuyhrcy0562-71-11 17:56:00* Test Item Value Reference Range Interpretation Comments Monocytes (%) (Auto) (test code = 5905-5) 5.7 4.4-11.3 [facility] CampusAutomated blood eosinophil count as percentage of total dbkalrixmw6125-43-64 17:56:00* Test Item Value Reference Range Interpretation Comments Eosinophils (%) (Auto) (test code = 713-8) 0.4 0.0-6.0 [facility] CampusAutomated blood basophil count as percentage of total koregzxghn6317-94-92 17:56:00* Test Item Value Reference Range Interpretation Comments Basophils (%) (Auto) (test code = 706-2) 0.5 0.0-1.0 [facility] CampusFluoroscopic procedure less than one hour bvxalocv5607-67-25 17:56:00* Test Item Value Reference Range Interpretation Comments IM GRANULOCYTES % (test code = IM GRANULOCYTES %) 0.4 0.0- 1.0 [facility] CampusAutomated blood neutrophil count 2020-03-29 17:56:00* Test Item Value Reference Range Interpretation Comments Neutrophils # (Auto) (test code = 751-8) 3.4 2.1-6.9 [facility] CampusBlood lymphocytes count (number/volume) 2020-03-29 17:56:00* Test Item Value Reference Range Interpretation Comments Lymphocytes # (Auto) (test code = 99164-0) 1.7 1.0-3.2 [facility] CampusBlood monocytes automated count (number/volume)2020-03-29 17:56:00* Test Item Value Reference Range Interpretation Comments Monocytes # (Auto) (test code = 742-7) 0.3 0.2-0.8 [facility] CampusAutomated blood eosinophil count 2020-03-29 17:56:00* Test Item Value Reference Range Interpretation Comments Eosinophils # (Auto) (test code = 711-2) 0.0 0.0-0.4 [facility] CampusAutomated blood basophil count (count/volume)2020-03-29 17:56:00* Test Item Value Reference Range Interpretation Comments Basophils # (Auto) (test code = 704-7) 0.0 0.0-0.1 [facility] CampusFluoroscopic procedure less than one hour ookpwjif6072-59-10 17:56:00* Test Item Value Reference Range Interpretation Comments Absolute Immature Granulocyte (auto (ethel t code = Absolute Immature Granulocyte (auto) 0.02 0-0.1 [facility] CampusProthrombin time (PT) in platelet poor plasma by coagulation nexmn1895-46-55 17:56:00* Test Item Value Reference Range Interpretation Comments Prothrombin Time (test code = 5902-2) 12.9 11.9-14.5 [facility] CampusINR in Platelet poor plasma by Coagulation aieyy4673-75-72 17:56:00* Test Item Value Reference Range Interpretation Comments Prothromb Time International Ratio (test code = 6301-6) 0.93 Oral Anticoagulant Therapy INR Values:1. Low Intensity Therapy 1.5 - 2.02 . Moderate Intensity Therapy 2.0 - 3.03. High Intensity Therapy(1) 2.5 - 3. 54. High Intensity Therapy(2) 3.0 - 4.05. Panic Value INR > 5.0 [facility] plasma sodium measurement (moles/volume)2020-03-29 17:56:00* Test Item Value Reference Range Interpretation Comments Sodium Level (test code = 2951-2) 140 136-145 [facility] Camp[facility]um or plasma potassium measurement (moles/volume)2020-03-29 17:56:00* Test Item Value Reference Range Interpretation Comments Potassium Level (test code = 2823-3) 3.6 3.5-5.1 [facility]um or plasma chloride measurement (moles/volume)2020-03-29 17:56:00* Test Item Value Reference Range Interpretation Comments Chloride Level (test code = 2075-0) 106 98-107 [facility]um or plasma carbon dioxide, total measurement (moles/volume)2020-03-29 17:56:00* Test Item Value Reference Range Interpretation Comments Carbon Dioxide Level (test code = 2028-9) 23 22-29 [facility]um or plasma anion fdr2923-85-56 17:56:00* Test Item Value Reference Range Interpretation Comments Anion Gap (test code = 91158-5) 14.6 8-16 [facility]um or plasma urea nitrogen measurement (mass/volume)2020-03-29 17:56:00* Test Item Value Reference Range Interpretation Comments Blood Urea Nitrogen (test code = 3094-0) 10 7-26 [facility]um or plasma creatinine measurement (mass/volume)2020-03-29 17:56:00* Test Item Value Reference Range Interpretation Comments Creatinine (test code = 2160-0) 1.04 0.72-1.25 [facility]um or plasma urea nitrogen/creatinine mass mvoiv6396-61-16 17:56:00* Test Item Value Reference Range Interpretation Comments BUN/Creatinine Ratio (test code = 3097-3) 10 6-25 [facility] CampusEstimated glomerular filtration rate (GFR) varvpasputfwf7031-73-39 17:56:00* Test Item Value Reference Range Interpretation Comments Estimat Glomerular Filtration Rate (test code = 771615964) > 60 >60 Ranges were taken from the National Kidney Disease Education Program and the [facility] Foundation literature.Reference ranges:60 or greater: Utwrxb56-71 ( for 3 consecutive months): Chronic kidney disease 15 or less: Kidney failureThe [facility] CampusGlucose jfdwapdlfeq8853-70-41 17:56:00* Test Item Value Reference Range Interpretation Comments Glucose Level (test code = NDU4536) 170 74-118 [facility]um or plasma calcium measurement (mass/volume)2020-03-29 17:56:00* Test Item Value Reference Range Interpretation Comments Calcium Level (test code = 54543-2) 9.3 8.4-10.2 [facility]um or plasma total bilirubin measurement (mass/volume)2020-03-29 17:56:00* Test Item Value Reference Range Interpretation Comments Total Bilirubin (test code = 1975-2) 0.5 0.2-1.2 [facility] CampusFluoroscopic procedure less than one hour mrigsthi9903-49-25 17:56:00* Test Item Value Reference Range Interpretation Comments Aspartate Amino Transf (AST/SGOT) (test code = Aspartate Amino Transf (AST/SGOT)) 30 5-34 [facility] alanine aminotransferase measurement (enzymatic activity/volume)2020-03-29 17:56:00* Test Item Value Reference Range Interpretation Comments Alanine Aminotransferase (ALT/SGPT) (test code = 1742-6) 32 0-55 [facility] protein measurement (mass/volume)2020-03-29 17:56:00* Test Item Value Reference Range Interpretation Comments Total Protein (test code = 2885-2) 7.8 6.5-8.1 [facility] albumin measurement (mass/volume)2020-03-29 17:56:00* Test Item Value Reference Range Interpretation Comments Albumin (test code = 1751-7) 4.3 3.5-5.0 [facility] glob[facility] (mass/volume) 2020-03-29 17:56:00* Test Item Value Reference Range Interpretation Comments Globulin (test code = 52421-1) 3.5 2.3-3.5 [facility] albumin/globulin mass [id number] 17:56:00* Test Item Value Reference Range Interpretation Comments Albumin/Globulin Ratio (test code = 1759-0) 1.2 0.8-2.0 [facility] alkaline phosphatase measurement (enzymatic activity/volume)2020-03-29 17:56:00* Test Item Value Reference Range Interpretation Comments Alkaline Phosphatase (test code = 6768-6) 102 40-150 [facility] color akpjodlihdqka1608-61-24 17:28:00* Test Item Value Reference Range Interpretation Comments Urine Color (test code = 5778-6) STRAW YELLOW [facility] [id number] 17:28:00* Test Item Value Reference Range Interpretation Comments Urine Clarity (test code = 17911-0) SL CLOUDY CLEAR [facility] Urine by Test strip 2020-03-29 17:28:00* Test Item Value Reference Range Interpretation Comments Urine Specific [place] (test code = 5811-5) 1.030 1.010-1.02 5 [facility] pH measurement by automated test [id number] 17:28:00* Test Item Value Reference Range Interpretation Comments Urine pH (test code = 01524-6) 5 5-7 [facility] leukocyte esterase detection by bhmafmvm1738-55-41 17:28:00* Test Item Value Reference Range Interpretation Comments Urine Leukocyte Esterase (test code = 5799-2) NEGATIVE NEGATIVE [facility] nitrite rdbwzxbdm4716-08-81 17:28:00* Test Item Value Reference Range Interpretation Comments Urine Nitrite (test code = 83231-7) NEGATIVE NEGATIVE [facility] protein measurement by test strip (mass/volume)2020-03-29 17:28:00* Test Item Value Reference Range Interpretation Comments Urine Protein (test code = 5804-0) TRACE NEGATIVE [facility] glucose lfcyhtoeq1326-96-98 17:28:00* Test Item Value Reference Range Interpretation Comments Urine Glucose (UA) (test code = 2349-9) NEGATIVE NEGATIVE [facility] ketones detection by automated test cnsjr6589-87-47 17:28:00* Test Item Value Reference Range Interpretation Comments Urine Ketones (test code = 79882-8) TRACE NEGATIVE [facility] urobilinogen measurement by test strip (mass/volume)2020-03-29 17:28:00* Test Item Value Reference Range Interpretation Comments Urine Urobilinogen (test code = 72056-2) 0.2 0.2-1 [facility] total bilirubin measurement (mass/volume)2020-03-29 17:28:00* Test Item Value Reference Range Interpretation Comments Urine Bilirubin (test code = 1978-6) NEGATIVE NEGATIVE [facility] erythrocytes meabndifx1595-19-47 17:28:00* Test Item Value Reference Range Interpretation Comments Urine Blood (test code = 91810-4) LARGE NEGATIVE [facility] CampusAutomated urine sediment leukocyte count by microscopy (number/high power field)2020-03-29 17:28:00* Test Item Value Reference Range Interpretation Comments Urine WBC (test code = 5821-4) NONE 0-5 [facility] CampusErythrocytes detection in urine sediment by light ghixfbhvzt6802-26-77 17:28:00* Test Item Value Reference Range Interpretation Comments Urine RBC (test code = 25925-3) -20 0-5 [facility] CampusBacteria detection in urine sediment by light hdtkzerhol2828-35-45 17:28:00* Test Item Value Reference Range Interpretation Comments Urine Bacteria (test code = 33586-0) MODERATE NONE [facility] CampusEpithelial cells detection in urine sediment by light ilfaxcdfxt3024-09-34 17:28:00* Test Item Value Reference Range Interpretation Comments Urine Epithelial Cells (test code = 03065-2) FEW NONE [facility] CampusCalcium oxalate crystals detection in urine sediment by light dfrysxymvm4120-97-14 17:28:00* Test Item Value Reference Range Interpretation Comments Urine Calcium Oxalate Crystals (test code = 5774-5) FEW FE W [facility] CampusRIBS UNILAT W/[id number] 19:05:00 [facility] [address] [place] [address] Patient Name: MART ANTOINE MR #: [id number] : 1935 Age/Sex: 83/M Req #: [id number] Adm Physician: Ordered by: RICKY PUGA, RADHA Rivera MD Report #: [id number] Location: [facility] Room/Bed: Procedure: [id number] DX/RIBS UNILAT W/CXR Exam Date: 04/17/19 Exam Time: 1845 REPORT STATUS: Signed Radi ographs of the ribs and chest x-ray - HISTORY: Pain. Shortness of hugh th. Cough COMPARISON: None available. FINDINGS: Bones: No acute displaced fracture. Osseous alignment is within normal limits. Joints: Scattered degenerative change. No osseous erosion. Nondisplaced right lateral fourth and fifth rib fractures. Soft tissues: Perihilar peribronchial h azy opacity could be due to bronchitis. No consolidated pneumonia, pleural eff usion or pneumothorax. IMPRESSION: Nondisplaced right lateral fourth and fifth rib fractures. Perihilar peribronchial hazy opacity could be due to bronchitis. No consolidated pneumonia, pleural effusion or pneumothorax. Signed by: Dr. Dayron Jack M.D. on 04/17/2019 7:16 PM Dictated By: NICOLE JACK MD, MD Transcribed By: KYM on 04/17/191915 COPY TO: RADHA GARCÍA CT ABDOMEN/PELVIS [id number] 11:50:00 [place] [address] Patient Name: MART ANTOINE MR #: [id number] : 1935 Age/Sex: 82/M Req #: [id number] Adm Physician: Ordered by: RADHA GARCÍA MD, MD Report #: [id number] Location: CT Room/Bed: Procedure: [id number] CT/CT ABDOMEN/PELVIS WO Exam Date: 07/29/18 Exam Ti me: 1050 REPORT STATUS: Signed E XAM: CT Abdomen and Pelvis WITHOUT contrast INDICATION: Gross hematuria. COMPARISON: None. TECHNIQUE: Abdomen and pelvis were scanned utiliTwinin g a multidetector helical scanner from the lung base to the pubic symphysis wi thout administration of IV contrast. Absence of intravenous contrast decreases sensitivity for detection of focal lesions and vascular pathology. Coronal an d sagittal reformations were obtained. Renal stone protocol was performed. Do se modulation, iterative reconstruction, and/or weight based adjustment of the mA/kV was utilized to reduce the radiation dose to as low as reasonably achie vable. RADIATION DOSE: Total DLP: 620.2 mGy*cm COMPLICATIONS: None FINDINGS: Motion artifact limits evaluation of the lower thorax and upper/mid abdomen. LINES and TUBES: None. LOWER THOR AX: Diffuse motion artifact severely limits evaluation. Patchy dependent atel ectasis. Coronary atherosclerosis. HEPATOBILIARY: No focal hepatic le sions. No biliary ductal dilation. GALLBLADDER: No radio-opaque stones or sludge. No wall thickening. SPLEEN: No splenomegaly. PANCREAS: No fo steve masses or ductal dilatation. ADRENALS: No adrenal nodules KI DNEYS/URETERS: Limited evaluation of the kidneys secondary to motion artifact. Possible punctate 1 mm calcifications overlying the right upper kidney on ser ies 3, image 50 and left mid kidney on image 67 may represent renal stones or vascular calcifications. No evidence of hydronephrosis. No definite solid mass . No evidence of ureteral stone. GI TRACT: No abnormal distention, wall thi ckening, or evidence of bowel obstruction. Appendix is normal. PELV IC ORGANS/BLADDER: The bladder is mildly diffusely thick-walled, which may ref lect underdistention. There is prostatomegaly, measuring up to 6.7 cm. LYMP H NODES: No lymphadenopathy. VESSELS: There are moderate atherosclerotic ca lcifications in the aorta and branch vessels. PERITONEUM / RETROPERITONE UM: No free air or fluid. BONES/SOFT TISSUES: Partially seen right proximal femoral fixation hardware. There are old healed left inferior and superior pu bic rami fractures. Sclerotic focus within the left posterior aspect of the L5 vertebral body / pedicle is nonspecific, but may represent a bone island. IMPRESSION: Limited study secondary to motion in the lower thorax and upper /mid abdomen. Punctate 1 mm calcifications overlying bilateral kidneys cou ld represent vascular calcifications or renal stones. No evidence of hydroneph rosis or ureteral stone. Prostatomegaly measuring up to 6.7 cm. Correlat ion with lab values and Urologic consultation if clinically indicated is suggayatri sted. Sclerotic focus within the left posterior aspect of the L5 vertebral body / pedicle is nonspecific, but could represent a bone island in the absen ce of known malignancy. Signed by: Dr. Chalino Arteaga MD on 07/29/2018 12:02 PM Dictated By: CHALINO ARTEAGA MD 1202 Transcribed By: KYM on 07/29/18 1202 COPY TO: RADHA GARCÍA CT ABDOMEN/PELVIS WO [place] [address] Patient Name: MART ANTOINE MR #: [id number] : 1935 Age/Sex: 81/M Req #: [id number] Adm Physician: Ordered by: ESTEE PRICE MD Report #: [id number] Location: CT Room/Bed: Procedure: [id number] CT/CT ABDOMEN/PELVIS WO Exam D ate: 05/08/17 Exam Time: 1535 REPORT STATUS: Si gned PROCEDURE: CT ABDOMEN AND PELVIS WITHOUT CONTRAST TECHNIQUE: abdomen and pelvis were scanned utilizing a multidetector helical scanner f rom the diaphragm to the lesser trochanter after the oral administration of w ater. No IV contrast was administered per protocol. Coronal and sagittal mult iplanar reformations were obtained. COMPARISON: [facility], CT, CT ABDOMEN/PELVIS WO, 01/18/2016, 11:33. INDICATIONS: CALCULUS OF KIDNEY FINDINGS: ABSENCE OF INTRAVENOUS CONTRAST DECREASES SENSITIV ITY FOR DETECTION OF FOCAL LESIONS AND VASCULAR PATHOLOGY. LOWER THORAX : Bilateral posterior lower lobe. Groundglass opacities, likely reflecting at electasis. No consolidation or pulmonary nodules. Atherosclerotic calcificati on of the coronary arteries HEPATOBILIARY: No focal hepatic lesions. No b iliary ductal dilatation. Gallbladder is unremarkable. SPLEEN: No splenomeg landy. PANCREAS: No focal masses or ductal dilatation. ADRENALS: No adrena l nodules. KIDNEYS/URETERS: Punctate nonobstructing calculus in the mid to inferior aspect of the left kidney (coronal image 66). The previously describ ed 4 mm nonobstructing calculus in the left kidney is not seen on the current exam. No other renal or any ureteral calculi. No hydronephrosis or obstructi on. No renal contour abnormalities. PELVIC ORGANS/BLADDER: Bladder is unremark able. Unchanged marked prostatic enlargement. PERITONEUM / RETROPERITON EUM: No free air or fluid. LYMPH NODES: No lymphadenopathy. VESSELS: Atheros clerotic calcification of the abdominal aorta and iliac vessels. GI TRA CT: No bowel dilation or evidence of obstruction. Appendix is well identified and normal in caliber. BONES AND SOFT TISSUES: No acute bony abnormalitie s. Stable, nonaggressive appearing 1.1 cm focal sclerotic lesion in the L5 le ft pedicle, likely representing a bone island. No lytic or other blastic l esions. Mild osteopenia. IMPRESSION: 1. punctate nonobstructing calc ulus in the mid to inferior aspect of the left kidney. A previously visualize d 4 mm nonobstructing calculus in the left kidney is not seen in the current exam. No other renal or ureteral calculi. No hydronephrosis or obstruction. 2. Unchanged marked prostatic enlargement. Emily Cao Dictated by: Hector Watts M.D. on 05/08/2017 at 16:39 Electr onically approved by: Hector Watts M.D. on 05/08/2017 at 16:39 Dictated By: HECTOR WATTS MD [id number] Transcribed By: ARY on 05/08/17 4941 COPY TO: ESTEE MEMBRENO MD
--- OUTSIDE RECORDS SUMMARY | 2020-04-29 18:36 | XMS REPORT | Continuity of Care Document ---
Author Author [facility] t Organization [facility] Address [address] [place] [address] Phone Unavailable Care Team Providers Care Human Resources Benefits Administrator Name Role Phone RADHA GARCÍA PCP Haily DASHCHING Attphys Unavailable KOUSSLUCAS TARSATISH Attphys Unavailable RADHA GARCÍA Attphys Unavailable AIMETTEESTEE Attphys Unavailable Haily DASH YICHING Admphys Unavailable Payers Payer Name Policy Type Policy Number Effective Date Expiration Date [facility] [id number] 2018 00:00 :00 [facility] [id number] 2016 00:00:00 [facility] Problems Condition Name Condition Details Condition Category Status Onset Date Resolution Date Last Treatment Date Treating Clinician Comments Source Urinary tract infection Problem Active [facility] Allergies, Adverse Reactions, Alerts This patient has no known allergies or adverse reactions. Social History Social Habit Start Date Stop Date Quantity Comments Source Sex Assigned At 1935 00:[birth year]00 1935 00:00:00 Male [facility] Medications Ordered Medication Name Filled Medication Name Start Date Stop Da te Current Medication? Ordering Clinician Indication Dosage Frequency Signature (SIG) Comments Components Source Memantine Hcl (Namenda) 10 Mg TABLET Memantine Hcl (Namenda) 10 Mg TABLET Yes 10 [facility] Metformin Hcl Metformin Hcl Yes 1000 Bedtime [facility] Tamsulosin Hcl Tamsulosin Hcl Yes Bedtime [facility] Trazodone Trazodone Yes 150 Bedtime [facility] Vital Signs Vital Name Observation Time Observation Value Comments Source Weight 2020-03-29 17:24:00 175 [lb_av] [facility] BMI (Body Mass Index) 2020-03-29 17:24:00 28.2 kg/m2 [facility] Procedures Procedure Date / Time Performed Performing Clinician Eloina berrios CT of abdomen and pelvis without contrast 2020-03-29 00:00:00 [facility] Plan of Care Planned Activity Planned Date Details Comments Source Instructions Urinary Tract Infection - Men [facility] Encounters Start Date/Time End Date/Time Encounter Type Admission Type [facility] Facility Care Department Encounter ID Source 2020-03-29 17:20:00 2020-03-29 20:20:00 Departed Emergency Room 1 BRANDY COBB [facility] [id number] I [facility] Results Test Description Test Time Test Comments Results Result Comments Source FEMUR 2 VIEWS MINIMUM LEFT 2020-04-25 23:41:00 [facility] 1935 Sex: [place] [address] Patient Name: MART ANTOINE MR #: [id number] : 1935 Age/Sex: 84/M Req #: [id number] Adm Physician: IRAJ DASH MD Ordered by: PHILLIP ANDRES MD Report #: [id number] Location: MED/SURG2 Room/Bed: [facility] Procedure: [id number] DX/FEMUR 2 VIEWS MINIMUM LEFT Exam Date: [...] MD CHEST SINGLE (PORTABLE) 2020-04-25 23:16:00 [facility] 1935 Sex: [place] [address] Patient Name: MART ANTOINE MR #: [id number] : 1935 Age/Sex: 84/M Req #: [id number] [facility] Physician: IRAJ DASH MD Ordered by: PHILLIP ANDRES MD Report #: [id number] Location: [facility] Room/Bed: [place] [address] Procedure: [id number] DX/CHEST SINGLE (PORTABLE) Exam Date: 04/25/20 Exam [...] MD CT CERVICAL SPINE WO 2020-04-25 22:03:00 [facility] 1935 Sex: M [facility] [address] [place] [address] Patient Name: MART ANTOINE MR #: [id number] : 1935 Age/Sex: 84/M Req #: [id number] Adm Physician: Ordered by: PHILLIP ANDRES MD Report #: [id number] Location: ER Room/Bed: Procedure: [id number] CT/CT CERVICAL SPINE WO Exam Date: Exam [...] MD CT BRAIN WO 2020-04-25 22:03:00 [facility] : 1935 Sex: [place] [address] Patient Name: MART ANTOINE MR #: [id number] : 1935 Age/Sex: 84/M Req #: [id number] [facility] Physician: Ordered by: PHILLIP ANDRES MD Report #: [id number] Location: Room/Bed: Procedure: [id number] CT/CT BRAIN WO Exam Date: Exam Time: [...] 2-3 VW (+/- PELVIS) 2020-04-25 21:42:00 [facility] : 1935 Sex: [place] [address] Patient Name: MART ANTOINE MR #: [id number] : 1935 Age/Sex: 84/M Req #: [id number] [facility] Physician: Ordered by: PHILLIP ANDRES MD Report #: [id number] Location: ER Room/Bed: Procedure: [id number] DX/HIP LEFT 2-3 VW (+/- PELVIS) Exam [...] MD ELBOW LEFT COMPLETE 2020-04-25 21:37:00 [facility] : 1935 Sex: [place] [address] Patient Name: MART ANTOINE MR #: [id number] : 1935 Age/Sex: 84/M Req #: [id number] Adm Physician: Ordered by: PHILLIP ANDRES MD Report #: [id number] Location: ER Room/Bed: Procedure: [id number] DX/ELBOW LEFT COMPLETE Exam Date: 04/25/20 Exam [...] By: VERN MARKS MD 41 Transcribed By: KMY on 04/25/202141 COPY TO: PHILLIP ANDRES MD CT ABDOMEN/PELVIS WO 2020-03-29 19:38:00 [place] [address] Patient Name: MART ANTOINE MR #: [id number] : 1935 Age/Sex: 84/M Req #: [id number] Adm Physician: Ordered by: BRANDY COBB MD Report #: [id number] Location: ER Room/Bed: Procedure: [id number] CT/CT ABDOMEN/PELVIS WO Exam Date: 03/29/20 Exam [...] Count (test code = 6690-2) 5.47 4.8-10.8 [facility] erythrocytes automated count (number/volume)2020-03-29 17:56:00* Test Item Value Reference Range Interpretation Comments Red Blood Count (test code = 789-8) 4.68 4.3-5.7 [facility] CenterBlood hemoglobin measurement (moles/volume)2020-03-29 17:56:00* Test Item Value Reference Range Interpretation Comments Hemoglobin (test code = 82234-5) 14.3 14.0-18.0 [facility] CenterAutomated blood hematocrit (volume fraction)2020-03-29 17:56:00* Test Item Value Reference Range Interpretation Comments Hematocrit (test code = 4544-3) 42.7 38.2-49.6 [facility] CenterAutomated erythrocyte mean corpuscular rbhyib1637-38-78 17:56:00* Test Item Value Reference Range Interpretation Comments Mean Corpuscular Volume (test code = 787-2) 91.2 81-99 [facility] CenterAutomated erythrocyte mean corpuscular hemoglobin (mass per erythrocyte)2020-03-29 17:56:00* Test Item Value Reference Range Interpretation Comments Mean Corpuscular Hemoglobin (test code = 785-6) 30.6 28-32 [facility] CenterAutomated erythrocyte mean corpuscular hemoglobin concentration measurement (mass/volume)2020-03-29 17:56:00* Test Item Value Reference Range Interpretation Comments Mean Corpuscular Hemoglobin Concent (test code = 786-4) 33.5 31-35 [facility] CenterRDW RocEf-Wkq6479-84-05 17:56:00* Test Item Value Reference Range Interpretation Comments Red Cell Distribution Width (test code = 41659-0) 17.2 11.7 -14.4 [facility] CenterAutomated blood platelet count (count/volume)2020-03-29 17:56:00* Test Item Value Reference Range Interpretation Comments Platelet Count (test code = 777-3) 166 140-360 [facility] CenterAutcritical access hospitaled blood segmented neutrophil count as percentage of total ylarwojiuz0880-43-11 17:56:00* Test Item Value Reference Range Interpretation Comments Neutrophils (%) (Auto) (test code = 12045-3) 61.2 38.7-80.0 [facility] CenterAutomated blood lymphocyte count as percentage ot total kqfgwdinrz9375-60-69 17:56:00* Test Item Value Reference Range Interpretation Comments Lymphocytes (%) (Auto) (test code = 736-9) 31.8 18.0-39.1 [facility] CenterAutomated blood monocyte count as percentage of total vbreouhhue6894-71-19 17:56:00* Test Item Value Reference Range Interpretation Comments Monocytes (%) (Auto) (test code = 5905-5) 5.7 4.4-11.3 [facility] CenterAutomated blood eosinophil count as percentage of total jyhoztepmk5985-17-02 17:56:00* Test Item Value Reference Range Interpretation Comments Eosinophils (%) (Auto) (test code = 713-8) 0.4 0.0-6.0 [facility] CenterAutomated blood basophil count as percentage of total hzdlgqeadz7825-42-65 17:56:00* Test Item Value Reference Range Interpretation Comments Basophils (%) (Auto) (test code = 706-2) 0.5 0.0-1.0 [facility] CenterFluoroscopic procedure less than one hour zqnctypd0192-93-96 17:56:00* Test Item Value Reference Range Interpretation Comments IM GRANULOCYTES % (test code = IM GRANULOCYTES %) 0.4 0.0- 1.0 [facility] CenterAutomated blood neutrophil count 2020-03-29 17:56:00* Test Item Value Reference Range Interpretation Comments Neutrophils # (Auto) (test code = 751-8) 3.4 2.1-6.9 [facility] CenterBlood lymphocytes count (number/volume) 2020-03-29 17:56:00* Test Item Value Reference Range Interpretation Comments Lymphocytes # (Auto) (test code = 54134-3) 1.7 1.0-3.2 [facility] CenterBlood monocytes automated count (number/volume)2020-03-29 17:56:00* Test Item Value Reference Range Interpretation Comments Monocytes # (Auto) (test code = 742-7) 0.3 0.2-0.8 [facility] CenterAutomated blood eosinophil count 2020-03-29 17:56:00* Test Item Value Reference Range Interpretation Comments Eosinophils # (Auto) (test code = 711-2) 0.0 0.0-0.4 [facility] CenterAutomated blood basophil count (count/volume)2020-03-29 17:56:00* Test Item Value Reference Range Interpretation Comments Basophils # (Auto) (test code = 704-7) 0.0 0.0-0.1 [facility] CenterFluoroscopic procedure less than one hour crfszlyl0492-03-53 17:56:00* Test Item Value Reference Range Interpretation Comments Absolute Immature Granulocyte (auto (ethel t code = Absolute Immature Granulocyte (auto) 0.02 0-0.1 [facility] CenterProthrombin time (PT) in platelet poor plasma by coagulation legfe9065-65-18 17:56:00* Test Item Value Reference Range Interpretation Comments Prothrombin Time (test code = 5902-2) 12.9 11.9-14.5 [facility] CenterINR in Platelet poor plasma by Coagulation ugfmx5952-64-36 17:56:00* Test Item Value Reference Range Interpretation Comments Prothromb Time International Ratio (test code = 6301-6) 0.93 Oral Anticoagulant Therapy INR Values:1. Low Intensity Therapy 1.5 - 2.02 . Moderate Intensity Therapy 2.0 - 3.03. High Intensity Therapy(1) 2.5 - 3. 54. High Intensity Therapy(2) 3.0 - 4.05. Panic Value INR > 5.0 [facility]er[facility] or plasma sodium measurement (moles/volume)2020-03-29 17:56:00* Test Item Value Reference Range Interpretation Comments Sodium Level (test code = 2951-2) 140 136-145 [facility] Hospitalerum or plasma potassium measurement (moles/volume)2020-03-29 17:56:00* Test Item Value Reference Range Interpretation Comments Potassium Level (test code = 2823-3) 3.6 3.5-5.1 [facility] Hospitalerum or plasma chloride measurement (moles/volume)2020-03-29 17:56:00* Test Item Value Reference Range Interpretation Comments Chloride Level (test code = 2075-0) 106 98-107 [facility] Hospitalerum or plasma carbon dioxide, total measurement (moles/volume)2020-03-29 17:56:00* Test Item Value Reference Range Interpretation Comments Carbon Dioxide Level (test code = 2028-9) 23 22-29 [facility] Hospitalerum or plasma anion uww0415-23-17 17:56:00* Test Item Value Reference Range Interpretation Comments Anion Gap (test code = 32530-0) 14.6 8-16 [facility] Hospitalerum or plasma urea nitrogen measurement (mass/volume)2020-03-29 17:56:00* Test Item Value Reference Range Interpretation Comments Blood Urea Nitrogen (test code = 3094-0) 10 7-26 [facility] Hospitalerum or plasma creatinine measurement (mass/volume)2020-03-29 17:56:00* Test Item Value Reference Range Interpretation Comments Creatinine (test code = 2160-0) 1.04 0.72-1.25 [facility] Hospitalerum or plasma urea nitrogen/creatinine mass tvcpd4704-79-35 17:56:00* Test Item Value Reference Range Interpretation Comments BUN/Creatinine Ratio (test code = 3097-3) 10 6-25 [facility] CenterEstimated glomerular filtration rate (GFR) peolngowknqmz2365-40-88 17:56:00* Test Item Value Reference Range Interpretation Comments Estimat Glomerular Filtration Rate (test code = 640777479) > 60 >60 Ranges were taken from the National Kidney Disease Education Program and the [employer] literature.Reference ranges:60 or greater: Gcfaoq83-30 ( for 3 consecutive months): Chronic kidney disease 15 or less: Kidney failureMemorial Hermann–[facility] Medical CenterGlucose qfknvpgganm7104-43-62 17:56:00* Test Item Value Reference Range Interpretation Comments Glucose Level (test code = HUT1218) 170 74-118 [facility] Hospitalerum or plasma calcium measurement (mass/volume)2020-03-29 17:56:00* Test Item Value Reference Range Interpretation Comments Calcium Level (test code = 54171-0) 9.3 8.4-10.2 [facility] Hospitalerum or plasma total bilirubin measurement (mass/volume)2020-03-29 17:56:00* Test Item Value Reference Range Interpretation Comments Total Bilirubin (test code = 1975-2) 0.5 0.2-1.2 [facility] CenterFluoroscopic procedure less than one hour ezhidpeg2473-87-81 17:56:00* Test Item Value Reference Range Interpretation Comments Aspartate Amino Transf (AST/SGOT) (test code = Aspartate Amino Transf (AST/SGOT)) 30 5-34 [facility] Hospitalerum or plasma alanine aminotransferase measurement (enzymatic activity/volume)2020-03-29 17:56:00* Test Item Value Reference Range Interpretation Comments Alanine Aminotransferase (ALT/SGPT) (test code = 1742-6) 32 0-55 [facility] Hospitalerum or plasma protein measurement (mass/volume)2020-03-29 17:56:00* Test Item Value Reference Range Interpretation Comments Total Protein (test code = 2885-2) 7.8 6.5-8.1 [facility] Hospitalerum or plasma albumin measurement (mass/volume)2020-03-29 17:56:00* Test Item Value Reference Range Interpretation Comments Albumin (test code = 1751-7) 4.3 3.5-5.0 [facility] CenterPlasma globulin measurement (mass/volume) 2020-03-29 17:56:00* Test Item Value Reference Range Interpretation Comments Globulin (test code = 96341-6) 3.5 2.3-3.5 [facility] Hospitalerum or plasma albumin/globulin mass sqlar6373-11-22 17:56:00* Test Item Value Reference Range Interpretation Comments Albumin/Globulin Ratio (test code = 1759-0) 1.2 0.8-2.0 [facility] Hospitalerum or plasma alkaline phosphatase measurement (enzymatic activity/volume)2020-03-29 17:56:00* Test Item Value Reference Range Interpretation Comments Alkaline Phosphatase (test code = 6768-6) 102 40-150 [facility] CenterUrine color jpnzmwglepotk2873-45-83 17:28:00* Test Item Value Reference Range Interpretation Comments Urine Color (test code = 5778-6) STRAW YELLOW [facility] CenterUrine kkooido3717-13-22 17:28:00* Test Item Value Reference Range Interpretation Comments Urine Clarity (test code = 34405-4) SL CLOUDY CLEAR [facility] Hospitalpecific gravity of Urine by Test strip 2020-03-29 17:28:00* Test Item Value Reference Range Interpretation Comments Urine Specific Loa (test code = 5811-5) 1.030 1.010-1.02 5 [facility] CenterUrine pH measurement by automated test biwpo8785-00-02 17:28:00* Test Item Value Reference Range Interpretation Comments Urine pH (test code = 91991-9) 5 5-7 [facility] CenterUrine leukocyte esterase detection by qpdfsqdu7125-92-81 17:28:00* Test Item Value Reference Range Interpretation Comments Urine Leukocyte Esterase (test code = 5799-2) NEGATIVE NEGATIVE [facility] CenterUrine nitrite rytqmwfsb5769-05-40 17:28:00* Test Item Value Reference Range Interpretation Comments Urine Nitrite (test code = 60899-4) NEGATIVE NEGATIVE [facility] CenterUrine protein measurement by test strip (mass/volume)2020-03-29 17:28:00* Test Item Value Reference Range Interpretation Comments Urine Protein (test code = 5804-0) TRACE NEGATIVE [facility] CenterUrine glucose trhamthug5099-03-53 17:28:00* Test Item Value Reference Range Interpretation Comments Urine Glucose (UA) (test code = 2349-9) NEGATIVE NEGATIVE [facility] CenterUrine ketones detection by automated test rkomw6017-13-21 17:28:00* Test Item Value Reference Range Interpretation Comments Urine Ketones (test code = 77099-7) TRACE NEGATIVE [facility] CenterUrine urobilinogen measurement by test strip (mass/volume)2020-03-29 17:28:00* Test Item Value Reference Range Interpretation Comments Urine Urobilinogen (test code = 58999-2) 0.2 0.2-1 [facility] CenterUrine total bilirubin measurement (mass/volume)2020-03-29 17:28:00* Test Item Value Reference Range Interpretation Comments Urine Bilirubin (test code = 1978-6) NEGATIVE NEGATIVE [facility] CenterUrine erythrocytes amssyjqwq3374-52-35 17:28:00* Test Item Value Reference Range Interpretation Comments Urine Blood (test code = 93347-8) LARGE NEGATIVE [facility] CenterAutomated urine sediment leukocyte count by microscopy (number/high power field)2020-03-29 17:28:00* Test Item Value Reference Range Interpretation Comments Urine WBC (test code = 5821-4) NONE 0-5 [facility] CenterErythrocytes detection in urine sediment by light awwdnhetxf2127-46-81 17:28:00* Test Item Value Reference Range Interpretation Comments Urine RBC (test code = 88401-8) -20 0-5 [facility] CenterBacteria detection in urine sediment by light saowybawpq5371-80-13 17:28:00* Test Item Value Reference Range Interpretation Comments Urine Bacteria (test code = 91981-5) MODERATE NONE [facility] CenterEpithelial cells detection in urine sediment by light xzheeibucg8517-57-70 17:28:00* Test Item Value Reference Range Interpretation Comments Urine Epithelial Cells (test code = 31079-1) FEW NONE [facility] CenterCalcium oxalate crystals detection in urine sediment by light suspnuzftw4680-69-89 17:28:00* Test Item Value Reference Range Interpretation Comments Urine Calcium Oxalate Crystals (test code = 5774-5) FEW FE W [facility] CenterRIBS UNILAT W/CSQ9451-93-14 19:05:00 [facility] [address] [place] [address] Patient Name: MART ANTOINE MR #: [id number] : 1935 Age/Sex: 83/M Req #: [id number] Adm Physician: Ordered by: RICKY PUGA, RADHA Rivera MD Report #: [id number] Location: [facility] Room/Bed: Procedure: [id number] DX/RIBS UNILAT W/CXR Exam Date: 04/17/19 Exam [...] 04/17/191915 COPY TO: RADHA GARCÍA CT ABDOMEN/PELVIS QS6719-13-56 11:50:00 [place] [address] Patient Name: MART ANTOINE MR #: [id number] : 1935 Age/Sex: 82/M Req #: [id number] Adm Physician: Ordered by: RADHA GARCÍA MD, MD Report #: [id number] Location: CT Room/Bed: Procedure: [id number] CT/CT ABDOMEN/PELVIS WO Exam Date: 07/29/18 Exam Ti me: 1050 REPORT STATUS: Signed E XAM: CT Abdomen and Pelvis WITHOUT contrast INDICATION: Gross hematuria. COMPARISON: None. TECHNIQUE: Abdomen and pelvis were scanned utilHillcrest Labsin g a multidetector helical scanner from the [...] COPY TO: RADHA GARCÍA CT ABDOMEN/PELVIS WO [place] [address] Patient Name: MART ANTOINE MR #: [id number] : 1935 Age/Sex: 81/M Req #: [id number] Adm Physician: Ordered by: ESTEE PRICE MD Report #: [id number] Location: CT Room/Bed: Procedure: [id number] CT/CT ABDOMEN/PELVIS WO Exam D ate: 05/08/17 Exam Time: 1535 REPORT STATUS: Si gned PROCEDURE: CT ABDOMEN AND PELVIS WITHOUT CONTRAST TECHNIQUE: abdomen and pelvis were scanned utilizing a multidetector helical scanner f rom the diaphragm to the lesser trochanter after the oral administration of w ater. No IV contrast was administered per protocol. Coronal and sagittal mult iplanar reformations were obtained. COMPARISON: [facility], CT, CT ABDOMEN/PELVIS WO, 01/18/2016, 11:33. INDICATIONS: [...] at 16:39 Dictated By: HECTOR WATTS MD 0509 Transcribed By: ARY on 05/08/17 0797 COPY TO: ESTEE MEMBRENO MD
--- NOTE | 2020-04-29 19:10 | Progress Note ---
DATE: 04/29/2020 CONSULTANTS: 1. Dr. Gerard, Orthopedics. 2. Dr. Bagley, Cardiology. SUBJECTIVE: The patient reports left hip pain is improved some, but still painful with movement. He denies any chest pain, shortness of breath, fever, or chills. Per nursing staff, had hard time working with physical therapy due to pain. Hemoglobin is improved. Discussed care with at bedside. PHYSICAL EXAMINATION: VITAL SIGNS: Temperature 98.1, pulse is 77, respirations 17, blood pressure 98/58, and pulse ox is 99% on room air. GENERAL: No acute distress. HEENT: Normocephalic and atraumatic. NECK: Supple. CARDIOVASCULAR: Regular rate and rhythm. LUNGS: Clear to auscultation. ABDOMEN: Soft and nontender. NEUROLOGIC: Alert, awake, and oriented x1-2 due to dementia. MUSCULOSKELETAL: Left lower extremity swelling and bruising and pain with movement due to recent fracture. SKIN: Dry. PSYCH: Calm. LABORATORY DATA: WBC 7.98, hemoglobin 8.1, hematocrit 24.1, and platelets 113. Sodium 138, potassium 3.5, BUN 10, creatinine 0.77, estimated GFR is greater than 60, blood glucose 148, and calcium is 7.8. PCR negative. IMPRESSION AND PLAN: 1. Status post fall with left hip fracture, status post IM rodding of the left hip per Orthopedics. Pain management as needed and physical therapy to evaluate and treat. He has had difficulty working with physical therapy due to increased pain. 2. Acute blood loss anemia, status post one unit of PRBCs. Hemoglobin is now 8.1. We will continue to monitor. 3. Tachycardia. Cardiology was consulted. TSH within normal limits. Improved post transfusion and beta-wilver use. 4. Diabetes type 2. Sliding scale insulin before meals and at bedtime. 5. Hypertension. We will continue to monitor on metoprolol. 6. Benign prostatic hyperplasia. Continue Flomax. 7. Alzheimer's. Continue Namenda. 8. Gastrointestinal and deep venous thrombosis prophylaxis. Lovenox has been held due to anemia. Discussed with Dr. Gerard and chela to hold until stabilizes. We will defer anticoagulation to Ortho. PLAN: To repeat labs in a.m. If remained stable may consider starting aspirin for DVT prophylaxis. Home health for physical therapy to be arranged per CM. Discussed plan with at bedside, who prefers to take him home with home health at this time. Dictated by Juana Herrera, ANP MD JOSE Bautista/SUNSHINEL /[id number] MTDD
[2020-04-29] MEDS: TRAZODONE HCL 50 MG TAB PO SCH (21:14)
[2020-04-29] MEDS: TAMSULOSIN HCL 0.4 MG CAP PO SCH (21:14)
[2020-04-30] VITALS (8 sets, daily range): BP systolic 105–118; BP diastolic 58–69
[2020-04-30] MEDS: MORPHINE SULFATE INJ 4 MG/ML INJ 1ML IV PRN ×3 (01:23→16:40)
[2020-04-30 05:56] LABS: BASOPHILS % 0.3 % (0.0-1.0); EOSINOPHILS % 0.3 % (0.0-6.0); HEMATOCRIT 21.8 % (38.2-49.6); HEMOGLOBIN 7.5 g/dL (14.0-18.0); LYMPHOCYTES # (AUTO) 1.2 (1.0-3.2); MEAN CORPUSCULAR HEMOGLOBIN 31.5 pg (28-32); MEAN CORPUSCULAR HGB CONC 34.4 g/dL (31-35); MEAN CORPUSCULAR VOLUME 91.6 fL (81-99); MONOCYTES # (AUTO) 0.6 (0.2-0.8); MONOCYTES % 10.6 % (4.4-11.3); NEUTROPHILS % 67.8 % (38.7-80.0); PLATELET COUNT 140 x10e3/uL (140-360); RED BLOOD COUNT 2.38 x10e6/uL (4.3-5.7); RED CELL DISTRIBUTION WIDTH 17.1 % (11.7-14.4)
[2020-04-30] MEDS: METOPROLOL TARTRATE 25 MG TAB PO SCH ×2 (09:00→16:31)
[2020-04-30] MEDS: MEMANTINE 10 MG TAB PO SCH ×2 (09:30→16:34)
[2020-04-30] MEDS: INSULIN REGULAR, HUMAN 100 UNIT/1 ML 3ML VIAL SQ SCH ×4 (09:45→21:39)
[2020-04-30] MEDS ORDERED: FUROSEMIDE INJ 10 MG/ML 2 ML VIAL IV PRN (11:30)
[2020-04-30] MEDS ORDERED: SODIUM CHLORIDE 0.9% 250ML 250 ML IV ONE (11:30)
[2020-04-30] MEDS: HYDROCODONE/APAP 10MG-325MG TAB PO PRN ×2 (12:21→21:39)
[2020-04-30] MEDS ORDERED: ONDANSETRON HCL 4 MG ORAL DISINTEGRATING TAB PO PRN (14:00)
--- NOTE | 2020-04-30 14:09 | Progress Note ---
DATE: 04/30/2020 CONSULTANTS: 1. Dr. Gerard, Orthopedics. 2. Dr. Bagley, Cardiology. SUBJECTIVE: The patient is resting in bed with no acute distress. He denies any shortness of breath, chest pain, fever, or chills. Left hip pain with movement and bruising noted. Hemoglobin is down to 7.5 today. PHYSICAL EXAMINATION: VITAL SIGNS: Temperature 99.3, pulse is 87, respirations 16, blood pressure 106/61, pulse ox is 98% on room air. GENERAL: No acute distress. HEENT: Normocephalic, atraumatic. NECK: Supple. CARDIOVASCULAR: Regular rate and rhythm. LUNGS: Clear to auscultation. ABDOMEN: Soft and nontender. NEUROLOGIC: Alert, awake, and oriented times 1-2 due to dementia. MUSCULOSKELETAL: Left lower extremity, improving and pain with ROM. SKIN: Dry and bruising on the left hip. PSYCH: Calm. LABORATORY DATA: WBC 5.96, hemoglobin 7.5, hematocrit 21.8, platelet 140. IMPRESSION: 1. Status post mechanical fall with left hip fractures. Status post IM rodding of the left hip per Orthopedics. Continue pain management and physical therapy as tolerated. 2. Acute blood loss anemia. Status post 1 unit of PRBCs. Hemoglobin is 7.5 today, we will transfuse one more unit of PRBCs. 3. Tachycardia. Continue metoprolol, TSH within normal limits. Cardiology on the case. 4. Diabetes type 2. Sliding scale insulin. 5. Hypertension. We will continue to monitor on metoprolol. 6. Benign prostatic hypertrophy. Continue Flomax. 7. Alzheimer's. Continue Namenda. 8. Gastrointestinal and deep venous thrombosis prophylaxis. Lovenox has been held due to anemia. We will resume anticoagulation per Orthopedics when stabilizes. PLAN: Transfuse 1 unit of PRBC today. Continue pain management and physical therapy. Dictated by JACQUELINE Ratliff Remigio Myers MD MY/MODL /[id number]
[2020-04-30] MEDS ORDERED: SODIUM CHLORIDE 0.9% 250ML 250 ML ONE (14:58)
--- NOTE | 2020-04-30 19:00 | NUR ---
RECEIVED PATIENT IN BEDSIDE SHIFT REPORT. PATIENT RESTING IN BED AT THIS TIME, NO PAIN REPORTED. NO S&S OF DISTRESS. IV SITE ASYMPTOMATIC. S/P BLOOD TRANSFUSION, NO OBSERVABLE SIGNS OF REACTION NOTED. BED ALARM ACTIVE. BED LOCKED IN LOWEST POSITION, SIDE RAILS UPX2, CALL LIGHT IN REACH.
[2020-04-30] MEDS: TAMSULOSIN HCL 0.4 MG CAP PO SCH (21:39)
[2020-04-30] MEDS: TRAZODONE HCL 50 MG TAB PO SCH (21:39)
[2020-05-01] VITALS (8 sets, daily range): BP systolic 108–147; BP diastolic 66–100
[2020-05-01 05:38] LABS: BASOPHILS % 0.4 % (0.0-1.0); EOSINOPHILS % 0.4 % (0.0-6.0); HEMATOCRIT 26.4 % (38.2-49.6); HEMOGLOBIN 8.7 g/dL (14.0-18.0); LYMPHOCYTES # (AUTO) 1.3 (1.0-3.2); LYMPHOCYTES % 26.1 % (18.0-39.1); MONOCYTES # (AUTO) 0.5 (0.2-0.8); MONOCYTES % 10.8 % (4.4-11.3); NEUTROPHILS # (AUTO) 2.9 (2.1-6.9); NEUTROPHILS % 59.9 % (38.7-80.0); PLATELET COUNT 150 x10e3/uL (140-360)
[2020-05-01] MEDS: MEMANTINE 10 MG TAB PO SCH ×2 (09:40→17:12)
[2020-05-01] MEDS: METOPROLOL TARTRATE 25 MG TAB PO SCH ×2 (09:40→17:00)
[2020-05-01] MEDS: INSULIN REGULAR, HUMAN 100 UNIT/1 ML 3ML VIAL SQ SCH ×4 (09:40→21:32)
[2020-05-01] MEDS: MORPHINE SULFATE INJ 4 MG/ML INJ 1ML IV PRN (10:54)
[2020-05-01] MEDS: HYDROCODONE/APAP 10MG-325MG TAB PO PRN ×2 (11:16→21:20)
[2020-05-01] MEDS ORDERED: MAGNESIUM HYDROXIDE 30 ML UDC PO ONE (12:30)
[2020-05-01] MEDS: DOCUSATE SODIUM 100 MG CAP PO SCH (17:12)
--- NOTE | 2020-05-01 19:00 | NUR ---
RECEIVED PATIENT IN BEDSIDE SHIFT REPORT. PATIENT RESTING IN BED AT THIS TIME. MILD PAIN REPORTED. NO CHANGE TO DRESSING SITE, C/D/I. NO DRAINAGE, BRUISING NOTED. SCDS ACTIVE. BED ALARM ACTIVE. NO S&S OF DISTRESS NOTED. BED LOCKED IN LOWEST POSITION, SIDE RAILS UPX2, CALL LIGHT IN REACH.
[2020-05-01] MEDS: TAMSULOSIN HCL 0.4 MG CAP PO SCH (21:31)
[2020-05-01] MEDS: TRAZODONE HCL 50 MG TAB PO SCH (21:31)
[2020-05-02] VITALS (8 sets, daily range): BP systolic 107–145; BP diastolic 56–83
[2020-05-02 06:17] LABS: BASOPHILS % 0.2 % (0.0-1.0); EOSINOPHILS % 0.5 % (0.0-6.0); HEMATOCRIT 25.6 % (38.2-49.6); HEMOGLOBIN 8.7 g/dL (14.0-18.0); LYMPHOCYTES # (AUTO) 1.4 (1.0-3.2); LYMPHOCYTES % 24.3 % (18.0-39.1); MEAN CORPUSCULAR HEMOGLOBIN 31.6 pg (28-32); MEAN CORPUSCULAR VOLUME 93.1 fL (81-99); MONOCYTES # (AUTO) 0.7 (0.2-0.8); MONOCYTES % 11.3 % (4.4-11.3); NEUTROPHILS # (AUTO) 3.7 (2.1-6.9); NEUTROPHILS % 61.7 % (38.7-80.0); PLATELET COUNT 186 x10e3/uL (140-360); RED BLOOD COUNT 2.75 x10e6/uL (4.3-5.7); RED CELL DISTRIBUTION WIDTH 16.9 % (11.7-14.4)
[2020-05-02] MEDS: INSULIN REGULAR, HUMAN 100 UNIT/1 ML 3ML VIAL SQ SCH ×4 (08:40→20:17)
[2020-05-02] MEDS: HYDROCODONE/APAP 10MG-325MG TAB PO PRN ×4 (08:47→23:13)
[2020-05-02] MEDS: METOPROLOL TARTRATE 25 MG TAB PO SCH ×2 (08:47→16:31)
[2020-05-02] MEDS: DOCUSATE SODIUM 100 MG CAP PO SCH ×2 (08:47→16:31)
[2020-05-02] MEDS: MEMANTINE 10 MG TAB PO SCH ×2 (08:47→16:31)
[2020-05-02] MEDS ORDERED: LACTULOSE SYRUP 20 GM/30 ML UDC PO ONE (12:30)
--- NOTE | 2020-05-02 13:06 | Progress Note ---
DATE: 05/02/2020 CONSULTANTS: 1. Dr. Gerard, Orthopedics. 2. Dr. Bagley, Cardiology. SUBJECTIVE: The patient is lying in bed, resting with no acute distress. He denies any chest pain, shortness of breath, fever, or chills. According to the nurse, he still has not moved his bowels and pain is still severe. PHYSICAL EXAMINATION: VITAL SIGNS: Temperature 98.4, pulse is 86, respirations 20, blood pressure 109/64, and pulse ox is 95% on room air. GENERAL: No acute distress. HEENT: Normocephalic and atraumatic. NECK: Supple. CARDIOVASCULAR: Regular rate and rhythm. LUNGS: Clear to auscultation. ABDOMEN: Soft and nontender. Active bowel sounds. NEUROLOGIC: Alert, awake, and oriented x1-2 due to dementia. MUSCULOSKELETAL: Left lower extremity pain with movement, bruising on the left side from left upper back all the way down to the lower leg. SKIN: Dry with bruising on the left side of back all the way to the left lower leg. PSYCH: Calm. LABORATORY DATA: WBC 5.93, hemoglobin 8.7, and hematocrit 25.6. IMPRESSION: 1. Status post mechanical fall with left hip fracture, status post surgery per Orthopedics. Continue pain management and physical therapy as tolerated. 2. Acute blood loss anemia, status post 2 units of PRBCs. Hemoglobin is stable at 8.7. We will continue to monitor closely and transfuse if hemoglobin is less than 7. 3. Tachycardia. Continue metoprolol. TSH within normal limits. Cardiology on the case, likely due to anemia. 4. Diabetes type 2. Sliding scale insulin. 5. Hypertension. Continue metoprolol. 6. Benign prostatic hypertrophy. Continue Flomax. 7. Alzheimer's. Continue Namenda. 8. Gastrointestinal and deep venous thrombosis prophylaxis. Lovenox has been held due to anemia. We will defer anticoagulation per Orthopedics. 9. Constipation. Colace started. We will give lactulose x1. PLAN: To continue current treatment, pain management, and physical therapy. The patient's does not want to go to a alf facility, so we will plan on discharge home with home health once cleared by Orthopedics. Dictated by Juana Herrera, JACQUELINE Yiching MD JOSE Menendez/AMARI /[id number]
--- NOTE | 2020-05-02 15:07 | Progress Note ---
DATE: 05/01/2020 CONSULTANTS: 1. Dr. Gerard, Orthopedics. 2. Dr. Bagley, Cardiology. SUBJECTIVE: The patient is seen sitting in a recliner with at bedside. He reports severe pain in the left hip, wants to get back in bed. He has the pain is not controlled with morphine and [place]. He denies any chest pain, fever, or chills. Hemoglobin is 8.7 today. PHYSICAL EXAMINATION: VITAL SIGNS: Temperature 98.5, pulse is 85, respirations 20, blood pressure 115/67, pulse ox is 95% on room air. GENERAL: In no acute distress. HEENT: Normocephalic, atraumatic. NECK: Supple. CARDIOVASCULAR: Regular rate and rhythm. LUNGS: Clear to auscultation. ABDOMEN: Soft and nontender. NEUROLOGIC: Alert, awake, and oriented times 1 to 2, demented. MUSCULOSKELETAL: Left lower extremity pain with movement. SKIN: Bruising at the left lower extremity extending to his left upper back. PSYCH: Calm. LABORATORY DATA: WBC 4.9, hemoglobin 8.7, hematocrit 26.4, and platelet 150,000. IMPRESSION: 1. Status post mechanical fall with left hip fracture, status post surgery per Orthopedics. Continue pain management and physical therapy as tolerated. Currently on morphine and [place] as needed. 2. Acute blood loss anemia. Status post 3 units of PRBCs. Hemoglobin is 8.7 today. We will continue to monitor. 3. Tachycardia. Now improved. Continue metoprolol. Cardiology on the case. 4. Diabetes type 2. Continue sliding scale insulin. 5. Hypertension. Continue metoprolol. 6. Benign prostatic hypertrophy. Continue Flomax. 7. Alzheimer's. On Namenda. 8. Constipation. We will start on Colace b.i.d. and milk of magnesia today likely due to narcotic use. 9. GI and DVT prophylaxis. Lovenox has been held due to anemia. Anticoagulation per Orthopedics. PLAN: Continue to manage pain better, physical therapy, monitor H and H closely and transfuse if hemoglobin is less than 7. Dictated by JACQUELINE Ratliff Remigio Myers MD MY/MODL /[id number]
--- NOTE | 2020-05-02 18:57 | NUR ---
RECEIVED BEDSIDE SHIFT REPORT FROM PREVIOUS NURSE. CALL LIGHT WITHIN REACH. PATIENT IN BED. AT BEDSIDE. PAIN MEDICATION ADMINISTERED.
--- NOTE | 2020-05-02 19:24 | NUR ---
Report given to oncoming nurse of patient's status. Resting in bed. No s/s of acute distress noted. Side rails upx2, call light within reach, bed alarm on, at bedside.
[2020-05-02] MEDS ORDERED: CITRATE OF MAGNESIA 300ML BOTTLE PO ONE (19:30)
[2020-05-02] MEDS: TRAZODONE HCL 50 MG TAB PO SCH (20:15)
[2020-05-02] MEDS: TAMSULOSIN HCL 0.4 MG CAP PO SCH (20:15)
[2020-05-03] VITALS (8 sets, daily range): BP systolic 111–133; BP diastolic 63–79
--- NOTE | 2020-05-03 01:12 | NUR ---
CALLED DR. DASH BECAUSE PATIENT IS COMPLAINING OF PAIN ON HIS LEFT SIDE. WAITING FOR DR. DASH TO CALL BACK.
--- NOTE | 2020-05-03 01:19 | NUR ---
CALLED DR. EVANS ABOUT THE PATIENT HAVING REALLY BAD PAIN AND WANTING SOMETHING FOR HIS PAIN. DR. EVANS SAID HE SIGNED OFF THE CASE BUT SAID WE CAN GIVE MORPHINE 4MG. AFTER TALKING TO DR. EVANS, DR. DASH CALLED AND WAS TOLD ABOUT THE PATIENT'S PAIN AND THAT THE NORCO 10MG IS NOT WORKING. DR. DASH ORDERED MORPHINE 4MG, Q4H IV.
[2020-05-03] MEDS: MORPHINE SULFATE INJ 4 MG/ML INJ 1ML IV PRN ×3 (01:32→13:20)
--- NOTE | 2020-05-03 02:00 | NUR ---
PATIENT PULLED OUT IV WITH CATH.
[2020-05-03 05:50] LABS: HEMATOCRIT 25.9 % (38.2-49.6); HEMOGLOBIN 8.7 g/dL (14.0-18.0)
--- NOTE | 2020-05-03 07:25 | NUR ---
GAVE BEDSIDE SHIFT REPORT TO ONCOMING NURSE. CALL LIGHT WITHIN REACH. PATIENT IN BED. HOURLY ROUNDING PERFORMED.
[2020-05-03] MEDS: INSULIN REGULAR, HUMAN 100 UNIT/1 ML 3ML VIAL SQ SCH ×4 (08:10→22:03)
[2020-05-03] MEDS: METOPROLOL TARTRATE 25 MG TAB PO SCH ×2 (09:53→19:46)
[2020-05-03] MEDS: MEMANTINE 10 MG TAB PO SCH ×2 (09:53→19:46)
[2020-05-03] MEDS: DOCUSATE SODIUM 100 MG CAP PO SCH ×2 (09:53→19:46)
[2020-05-03] MEDS ORDERED: BISACODYL 5 MG TAB EC PO ONE ×2 (11:45→15:55)
--- NOTE | 2020-05-03 12:10 | Progress Note ---
DATE: 05/03/2020 CONSULTANTS: 1. Dr. Mancera, orthopedics. 2. Dr. Bagley, Cardiology. SUBJECTIVE: The patient is resting in bed, reports left lower extremity pain. He still has not moved his bowels as he had refused to take all of his Mag citrate last night. We will give Dulcolax x1. He has active bowel sounds. He denies any chest pain, shortness of breath, fever, or chills. PHYSICAL EXAMINATION: VITAL SIGNS: Temperature 97.9, pulse is 101, respirations 18, blood pressure 123/68, and pulse ox is 98% on 2 L of oxygen. GENERAL: No acute distress. HEENT: Normocephalic atraumatic. NECK: Supple. CARDIOVASCULAR: Regular rate and rhythm. LUNGS: Clear to auscultation. ABDOMEN: Soft and nontender. Active bowel sounds. Nondistended. NEUROLOGIC: Alert, awake, and oriented x2. MUSCULOSKELETAL: Left lower extremity pain with movement. SKIN: Dry with bruising from left upper back down to his left lower leg, status post surgery. PSYCH: Calm. LABORATORY DATA: Hemoglobin 8.7, hematocrit 25.9. IMPRESSION: 1. Status post mechanical fall with left hip fracture. Status post surgery per Orthopedics. Continue pain management and physical therapy as tolerated. 2. Acute blood loss anemia. Status post 2 units of PRBCs. Hemoglobin is stable at 8.7. 3. Tachycardia. Continue metoprolol. TSH within normal limits. Stable. Cardiology on the case. 4. Diabetes type 2. Sliding scale insulin. 5. Hypertension. Continue metoprolol. 6. Benign prostatic hypertrophy. Continue Flomax. 7. Alzheimer's. Continue Namenda. 8. Constipation. Continue Colace b.i.d. and Dulcolax x1 to be given today. 9. Gastrointestinal and deep venous thrombosis prophylaxis. Lovenox has been held due to anemia. We will defer anticoagulation to Orthopedics. PLAN: To continue pain management and physical therapy as tolerated. Hemoglobin is stable. Anticipate discharge once cleared by Orthopedics. Dictated by JACQUELINE Ratliff Delmiching Nolan Myers MD MY/MODL /[id number]
--- NOTE | 2020-05-03 18:32 | Diagnostic Imaging Report ---
EXAM: ABDOMEN-1VIEW (KUB), DATE: 05/03/2020 5:15 PM INDICATION: Constipation. COMPARISON: 04/07/2016. FINDINGS: LINES/TUBES: None BOWEL PATTERN: No evidence for obstruction. Moderate volume of stool within rectosigmoid. SOFT TISSUES: No abnormal calcifications. No mass effect. LUNG BASES: Increased density in the right lung base possibly pleural effusion. Patchy density in the left lung base, possibly atelectasis. BONES: Degenerative changes of the hip joint bilaterally. Bilateral femoral ORIF partially visualized. IMPRESSION: Moderate volume of stool within the rectosigmoid. No bowel obstruction. Signed by: Dr. Yash Ocasio M.D. on 05/03/2020 6:29 PM
--- NOTE | 2020-05-03 19:38 | NUR ---
BEDSIDE SHIFT REPORT RECEIVED FROM DAY RN. PT IS ALERT AND ORIENTED X2. SL 20 G LFA. SITE HEALTHY. DRESSING TO LEFT HIP CHANGED- NEW AQU[place]LE PLACED. BRUISING TO LEFT SIDE FROM FALL AT HOME. VOIDING PER URINAL.URINE CLEAR KYLER IN COLOR. CALL LIGHT WITHIN REACH. BED ALARM ON. BED LOCKED IN LOW POSITION.
[2020-05-03] MEDS: TRAZODONE HCL 50 MG TAB PO SCH (22:05)
[2020-05-03] MEDS: TAMSULOSIN HCL 0.4 MG CAP PO SCH (22:05)
[2020-05-03] MEDS: HYDROCODONE/APAP 5MG-325MG TAB PO PRN (22:49)
[2020-05-04] VITALS: BP 101/54
[2020-05-04 04:00] VITALS: BP 112/63
--- NOTE | 2020-05-04 04:00 | NUR ---
TAP H20 ENEMA GIVEN ORDERED. RETURN CLEAR TO FRIAS H20.
[2020-05-04 06:19] LABS: BASOPHILS % 0.1 % (0.0-1.0); EOSINOPHILS % 0.3 % (0.0-6.0); HEMATOCRIT 24.8 % (38.2-49.6); HEMOGLOBIN 8.1 g/dL (14.0-18.0); LYMPHOCYTES # (AUTO) 1.1 (1.0-3.2); LYMPHOCYTES % 14.9 % (18.0-39.1); MEAN CORPUSCULAR HEMOGLOBIN 30.7 pg (28-32); MEAN CORPUSCULAR HGB CONC 32.7 g/dL (31-35); MEAN CORPUSCULAR VOLUME 93.9 fL (81-99); MONOCYTES # (AUTO) 0.8 (0.2-0.8); NEUTROPHILS # (AUTO) 5.1 (2.1-6.9); NEUTROPHILS % 71.5 % (38.7-80.0); PLATELET COUNT 225 x10e3/uL (140-360); RED BLOOD COUNT 2.64 x10e6/uL (4.3-5.7); RED CELL DISTRIBUTION WIDTH 17.3 % (11.7-14.4)
[2020-05-04 06:40] LABS: ANION GAP 11.7 mmol/L (8-16); BLOOD UREA NITROGEN 14 mg/dL (7-26); BUN/CREATININE RATIO 19 (6-25); CALCIUM 7.9 mg/dL (8.4-10.2); CARBON DIOXIDE 26 mmol/L (22-29); CHLORIDE 102 mmol/L (98-107); CREATININE, SERUM 0.72 mg/dL (0.72-1.25); EST GLOMERULAR FILTRATION RATE > 60 ML/MIN (60-); GLUCOSE 179 mg/dL (74-118); POTASSIUM 3.7 mmol/L (3.5-5.1); SODIUM 136 mmol/L (136-145)
[2020-05-04 07:57] VITALS: BP 121/68
[2020-05-04 08:05] VITALS: BP 121/68
[2020-05-04] MEDS ORDERED: LIDOCAINE 4% PATCH TP SCH (09:00)
[2020-05-04] MEDS: MEMANTINE 10 MG TAB PO SCH ×2 (10:22→17:40)
[2020-05-04] MEDS: DOCUSATE SODIUM 100 MG CAP PO SCH ×2 (10:22→17:40)
[2020-05-04] MEDS: METOPROLOL TARTRATE 25 MG TAB PO SCH ×2 (10:23→17:00)
[2020-05-04] MEDS: INSULIN REGULAR, HUMAN 100 UNIT/1 ML 3ML VIAL SQ SCH ×3 (10:23→15:45)
[2020-05-04] MEDS ORDERED: MAGNESIUM HYDROXIDE 30 ML UDC PO ONE (10:45)
[2020-05-04] MEDS ORDERED: ASPIRIN ENTERI325 MG PO (11:56)
[2020-05-04] MEDS ORDERED: TYLENOL # 31 EA PO (11:59)
[2020-05-04 12:00] VITALS: BP 128/73
--- NOTE | 2020-05-04 14:13 | NUR ---
PT DISCHARGING HOME TODAY NOTIFIED RUTH ANN WITH [facility] STAFF OF PT'S DISCHARGE
[2020-05-04 16:16] VITALS: BP 114/64
--- NOTE | 2020-05-04 18:34 | NUR ---
Patient received discharge order from Dr. Myers once Dr. Mancera and Dr. Bagley cleared patient for discharge. Patient IV removed at 1800 and covered with a C/D/I dressing. Patient's aqucel dresisng was changed and replaced per doctor's orders. Patient's was given discharge instructions, education, and prescriptions. They were given strict follow up orders. Patient's verbalized understanding. Patient wheeled to 's car at 1822 with one nurse and one tech. No other issues or complaints.
--- NOTE | 2020-05-04 21:38 | Discharge Summary ---
PCP: Dr. Salbador Nicole. FINAL DISCHARGE DIAGNOSES: 1. Left hip fracture, status post mechanical fall, status post surgery per Orthopedics. 2. Acute blood loss anemia, status post 2 units of PRBCs. 3. Diabetes type 2. 4. Hypertension. 5. Benign prostatic hypertrophy. 6. Alzheimer's. 7. Constipation. CONSULTANTS: 1. Dr. Aguilar, orthopedics. 2. Dr. Bagley, Cardiology. PROCEDURES: He had left hip surgery per Orthopedics. HISTORY: Per HPI. HOSPITAL COURSE: This is an 84-year-old male, who presented to the ER status post fall with left hip pain. The patient has a history of dementia, hypertension, diabetes. Orthopedics was consulted and underwent ORIF. He was continued with pain management and physical therapy as tolerated. On postop day #2, he was noted to have low blood count with tachycardia when getting up. He received a total of 2 units of PRBCs. Cardiology was consulted and no further workup was needed. He then had constipation. KUB showed moderate stool. He received multiple laxatives and is able to move his bowels. Pain is managed per hydrocodone and lidocaine patch. Vital signs remained stable. The patient's wants to take him home with home health as opposed to [place] [facility] due to the pandemic. Home Health has been arranged and we will discharge home to follow up with Dr. Aguilar in 1 to 2 weeks. Dressing was changed and overall improved. PHYSICAL EXAMINATION: VITAL SIGNS: Temperature 98.2, pulse is 86, respirations 16, blood pressure 114/64, pulse ox is 95% on room air. GENERAL: No acute distress. HEENT: Normocephalic and atraumatic. NECK: Supple. CARDIOVASCULAR: Regular rate and rhythm. LUNGS: Clear to auscultation. ABDOMEN: Soft and nontender. Active bowel sounds. NEUROLOGIC: Alert, awake, and oriented x2 due to dementia. MUSCULOSKELETAL: Left lower extremity pain with movement and bruising noted in left side of the body. SKIN: Dry. PSYCH: Calm. CONDITION AT DISCHARGE: Improved and stable. DISCHARGE MEDICATIONS: Please see medication reconciliation list. Added aspirin 325 b.i.d. for DVT prophylaxis per Orthopedics. FOLLOWUP: Follow up with PCP and Orthopedics in 1 to 2 weeks. TIME SPENT: Total discharge time is 32 minutes. Dictated by Juana Yitbarek, ANP Yiching MD JOSE Menendez/AMARI /[id number] cc: Salbador Nicole
== END 2020-05-04 18:23 | disposition home or self-care (01) | DRG 481 ==
LOC: ER 19:54 → ERHOLD 22:29 → MED/SURG2 23:40 → MED/SURG 23:49
PROVIDERS: ADMIT Internal Medicine; ATTEND Internal Medicine
PROC: 0QH936Z Insertion of Intramedullary Internal Fixation Device into Left Femoral Shaft, Percutaneous Approach (ICD-10-PCS; principal; 2020-04-25)
PROC: 30233N1 Transfusion of Nonautologous Red Blood Cells into Peripheral Vein, Percutaneous Approach (ICD-10-PCS; 2020-04-28)
DX: S72.142A Displaced intertrochanteric fracture of left femur, initial encounter for closed fracture (principal); D62 Acute posthemorrhagic anemia; E11.8 Type 2 diabetes mellitus with unspecified complications; N40.0 Benign prostatic hyperplasia without lower urinary tract symptoms; G30.9 Alzheimer's disease, unspecified; F02.80 Dementia in other diseases classified elsewhere, unspecified severity, without behavioral disturbance, psychotic disturbance, mood disturbance, and anxiety; I10 Essential (primary) hypertension; K59.00 Constipation, unspecified; R00.0 Tachycardia, unspecified; Z11.59 Encounter for screening for other viral diseases
CPT/HCPCS: 36415; 70450; 71045; 72125; 74018; 76000; 80048; 80053; 81001; 82150; 82550; 82553; 82948; 83690; 84443; 84484; 85014; 85018; 85025; 85610; 85730; 86850; 86900; 86920; 93005; 93306; 96361; 96372; 97139; 99251; 99284; C1713; J0690; J1644; J1650; J1817; J1940; J2001; J2270; J2370; J2405; J3010; J7030; J7050; P9016

== ENCOUNTER → 2020-12-10 | Outpatient (CLI) | payer MEDICARE, OTHER ==
[~2020-12-10] MED LIST changes: +ASPIRIN ENTERI325 MG PO; +IOPAMIDOL 370 MG/ML 200 ML INFUS..BTL INJ ONE; +SODIUM CHLORIDE 0.9% 50ML 50 ML ONE; +TYLENOL # 31 EA PO
== END ==
LOC: CT 14:10
PROVIDERS: ATTEND Family Medicine
DX: R10.9 Unspecified abdominal pain (principal); K76.0 Fatty (change of) liver, not elsewhere classified; N40.0 Benign prostatic hyperplasia without lower urinary tract symptoms
CPT/HCPCS: 74177; Q9967

== ENCOUNTER → 2021-01-13 | Day surgery (SDC) | payer MEDICARE, OTHER ==
[2021-01-11 10:55] LABS: BASOPHILS % 0.7 % (0.0-1.0); EOSINOPHILS % 0.3 % (0.0-6.0); HEMATOCRIT 40.6 % (38.2-49.6); HEMOGLOBIN 13.8 g/dL (14.0-18.0); MEAN CORPUSCULAR HEMOGLOBIN 31.8 pg (28-32); MEAN CORPUSCULAR VOLUME 93.5 fL (81-99); MONOCYTES # (AUTO) 0.5 (0.2-0.8); MONOCYTES % 9.1 % (4.4-11.3); NEUTROPHILS # (AUTO) 3.2 (2.1-6.9); NEUTROPHILS % 55.4 % (38.7-80.0); PLATELET COUNT 179 x10e3/uL (140-360); RED BLOOD COUNT 4.34 x10e6/uL (4.3-5.7); RED CELL DISTRIBUTION WIDTH 15.3 % (11.7-14.4)
[~2021-01-13] MED LIST changes: -IOPAMIDOL 370 MG/ML 200 ML INFUS..BTL INJ ONE; +LIDOCAINE HCL 2% LOCAL INJ 5 ML SDV VIAL INJ ONE; +PROPOFOL IV EMULSION 10 MG/ML 20 ML VIAL ONE; -SODIUM CHLORIDE 0.9% 50ML 50 ML ONE; -TAMSULOSIN HCL0.4 MG; +TAMSULOSIN HCL0.4 MG PO
[2021-01-13 12:55] VITALS: BP 133/75
== END | disposition home or self-care (01) ==
LOC: OR 08:32
PROVIDERS: ATTEND Internal Medicine Gastroenterology
DX: K29.40 Chronic atrophic gastritis without bleeding (principal); K44.9 Diaphragmatic hernia without obstruction or gangrene; K59.00 Constipation, unspecified; R63.4 Abnormal weight loss; E11.9 Type 2 diabetes mellitus without complications; D64.9 Anemia, unspecified; N20.0 Calculus of kidney; E05.90 Thyrotoxicosis, unspecified without thyrotoxic crisis or storm; F03.90 Unspecified dementia, unspecified severity, without behavioral disturbance, psychotic disturbance, mood disturbance, and anxiety; F41.9 Anxiety disorder, unspecified; F32.9 Major depressive disorder, single episode, unspecified; Z01.810 Encounter for preprocedural cardiovascular examination; Z01.812 Encounter for preprocedural laboratory examination; Z79.84 Long term (current) use of oral hypoglycemic drugs
CPT/HCPCS: 36415 ×2; 43239; 82948; 85025; 93005; J2001; J2704

== ENCOUNTER 2021-09-01 17:32 | Inpatient (IN) | payer MEDICARE, OTHER ==
[~2021-09-01] VITALS: Ht 162.6 cm; Wt 68.5 kg
[2021-09-01] MEDS: SODIUM CHLORIDE 0.9% 1000ML 1,000 ML IV SCH (01:00)
[~2021-09-01 17:32] MED LIST changes: -LIDOCAINE HCL 2% LOCAL INJ 5 ML SDV VIAL INJ ONE; -PROPOFOL IV EMULSION 10 MG/ML 20 ML VIAL ONE
[2021-09-01] MEDS ORDERED: SODIUM CHLORIDE 0.9% 1000ML 1,000 ML IV STA (18:01)
[2021-09-01] MEDS ORDERED: ACETAMINOPHEN 325 MG TAB PO ONE (18:15)
[2021-09-01 18:27] LABS: BASOPHILS % 0.2 % (0.0-1.0); HEMATOCRIT 37.9 % (38.2-49.6); HEMOGLOBIN 12.8 g/dL (14.0-18.0); LYMPHOCYTES # (AUTO) 0.8 (1.0-3.2); LYMPHOCYTES % 4.9 % (18.0-39.1); MEAN CORPUSCULAR HEMOGLOBIN 30.5 pg (28-32); MEAN CORPUSCULAR HGB CONC 33.8 g/dL (31-35); MEAN CORPUSCULAR VOLUME 90.2 fL (81-99); MONOCYTES # (AUTO) 1.7 (0.2-0.8); MONOCYTES % 10.3 % (4.4-11.3); NEUTROPHILS % 83.6 % (38.7-80.0); PLATELET COUNT 208 x10e3/uL (140-360); RED CELL DISTRIBUTION WIDTH 16.4 % (11.7-14.4)
[2021-09-01 18:36] LABS: COLOR,URINE YELLOW (YELLOW)
[2021-09-01 18:38] LABS: CLARITY,URINE SL CLOUDY (CLEAR)
[2021-09-01 18:39] LABS: LEUKOCYTE ESTERASE ,URINE NEGATIVE (NEGATIVE); NITRITE,URINE NEGATIVE (NEGATIVE)
[2021-09-01 18:40] LABS: KETONES,URINE NEGATIVE (NEGATIVE); PROTEIN,URINE DIPSTICK 1+ (NEGATIVE); URINE UROBILINOGEN 0.2 mg/dL (0.2 - 1)
[2021-09-01 18:43] LABS: ALBUMIN 4.1 g/dL (3.5-5.0); ALBUMIN/GLOBULIN RATIO 1.2 (0.8-2.0); ANION GAP 17.3 mmol/L (8-16); CALCIUM 9.4 mg/dL (8.4-10.2); CREATININE, SERUM 0.92 mg/dL (0.72-1.25); POTASSIUM 4.3 mmol/L (3.5-5.1)
[2021-09-01 18:52] LABS: AMORPHOUS SEDIMENT,URINE MANY (FEW); BACTERIA,URINE MANY /HPF; CALCIUM OXALATE CRYSTALS,UR FEW (FEW); WBC,URINE (MAN) 0-5 /HPF (0-5)
[2021-09-01] MEDS ORDERED: SODIUM CHLORIDE 0.9% 50ML 50 ML ONE (19:09)
[2021-09-01] MEDS ORDERED: IOPAMIDOL 370 MG/ML 200 ML INFUS..BTL INJ ONE (19:10)
[2021-09-01] MEDS ORDERED: ONDANSETRON HCL INJ 2MG/ML 2ML 2 MG/ML VIAL IV PRN (21:30)
[2021-09-01 23:00] VITALS: BP 113/64
[2021-09-02] VITALS (7 sets, daily range): BP systolic 97–117; BP diastolic 60–66
[2021-09-02 04:58] LABS: BASOPHILS % 0.2 % (0.0-1.0); EOSINOPHILS % 0.1 % (0.0-6.0); HEMATOCRIT 30.8 % (38.2-49.6); HEMOGLOBIN 10.4 g/dL (14.0-18.0); LYMPHOCYTES # (AUTO) 1.1 (1.0-3.2); MEAN CORPUSCULAR HEMOGLOBIN 29.8 pg (28-32); MEAN CORPUSCULAR HGB CONC 33.8 g/dL (31-35); MEAN CORPUSCULAR VOLUME 88.3 fL (81-99); MONOCYTES # (AUTO) 2.2 (0.2-0.8); MONOCYTES % 17.5 % (4.4-11.3); NEUTROPHILS # (AUTO) 9.1 (2.1-6.9); NEUTROPHILS % 72.5 % (38.7-80.0); PLATELET COUNT 169 x10e3/uL (140-360); RED BLOOD COUNT 3.49 x10e6/uL (4.3-5.7); RED CELL DISTRIBUTION WIDTH 16.2 % (11.7-14.4)
[2021-09-02 05:19] LABS: ANION GAP 9.9 mmol/L (8-16); CALCIUM 8.7 mg/dL (8.4-10.2); CREATININE, SERUM 0.7 mg/dL (0.72-1.25); POTASSIUM 3.9 mmol/L (3.5-5.1)
[2021-09-02] MEDS: SODIUM CHLORIDE 0.9% 1000ML 1,000 ML IV SCH ×3 (05:29→21:02)
[2021-09-02] MEDS: Morphine 2mg Syringe 2 MG/ML SYR IV PRN (06:25)
[2021-09-02] MEDS ORDERED: DEXTROSE 50% SYRINGE 50 ML IV PRN (12:00)
[2021-09-02] MEDS: INSULIN LISPRO 100 UNIT/1 ML 3ML VIAL SQ SCH ×3 (12:44→21:01)
[2021-09-02] MEDS ORDERED: GLYBURIDE5 MG PO (14:22)
[2021-09-02] MEDS: METFORMIN HCL 500 MG TAB PO SCH (21:01)
[2021-09-02] MEDS: TAMSULOSIN HCL 0.4 MG CAP PO SCH (21:01)
[2021-09-02] MEDS: MEMANTINE 10 MG TAB PO SCH (21:02)
[2021-09-02] MEDS: ACETAMINOPHEN/CODEINE 300MG - 30MG TAB PO PRN (21:09)
[2021-09-03] VITALS (8 sets, daily range): BP systolic 101–143; BP diastolic 64–77
[2021-09-03] MEDS: SODIUM CHLORIDE 0.9% 1000ML 1,000 ML IV SCH ×3 (04:07→21:01)
[2021-09-03 05:34] LABS: BASOPHILS % 0.2 % (0.0-1.0); EOSINOPHILS % 0.1 % (0.0-6.0); HEMATOCRIT 26.1 % (38.2-49.6); HEMOGLOBIN 8.9 g/dL (14.0-18.0); LYMPHOCYTES # (AUTO) 1.3 (1.0-3.2); LYMPHOCYTES % 15.7 % (18.0-39.1); MEAN CORPUSCULAR HEMOGLOBIN 30.4 pg (28-32); MEAN CORPUSCULAR HGB CONC 34.1 g/dL (31-35); MEAN CORPUSCULAR VOLUME 89.1 fL (81-99); MONOCYTES # (AUTO) 1.5 (0.2-0.8); MONOCYTES % 18.5 % (4.4-11.3); NEUTROPHILS # (AUTO) 5.3 (2.1-6.9); NEUTROPHILS % 63.8 % (38.7-80.0); PLATELET COUNT 146 x10e3/uL (140-360); RED BLOOD COUNT 2.93 x10e6/uL (4.3-5.7); RED CELL DISTRIBUTION WIDTH 16.7 % (11.7-14.4)
[2021-09-03 05:56] LABS: ALBUMIN 3.1 g/dL (3.5-5.0); ALBUMIN/GLOBULIN RATIO 1.1 (0.8-2.0); ANION GAP 10.5 mmol/L (8-16); CREATININE, SERUM 0.72 mg/dL (0.72-1.25); POTASSIUM 3.5 mmol/L (3.5-5.1)
[2021-09-03] MEDS: INSULIN LISPRO 100 UNIT/1 ML 3ML VIAL SQ SCH ×4 (07:30→21:01)
[2021-09-03] MEDS: Morphine 2mg Syringe 2 MG/ML SYR IV PRN ×2 (08:10→22:55)
[2021-09-03] MEDS: GLYBURIDE 5 MG TAB PO SCH (09:15)
[2021-09-03] MEDS: MEMANTINE 10 MG TAB PO SCH ×2 (09:15→21:00)
[2021-09-03] MEDS: METFORMIN HCL 500 MG TAB PO SCH (21:00)
[2021-09-03] MEDS: TAMSULOSIN HCL 0.4 MG CAP PO SCH (21:00)
[2021-09-04] VITALS (8 sets, daily range): BP systolic 116–140; BP diastolic 55–75
[2021-09-04] MEDS: SODIUM CHLORIDE 0.9% 1000ML 1,000 ML IV SCH ×4 (05:17→23:27)
[2021-09-04] MEDS: INSULIN LISPRO 100 UNIT/1 ML 3ML VIAL SQ SCH ×4 (07:30→21:00)
[2021-09-04 07:31] LABS: BASOPHILS % 0.3 % (0.0-1.0); EOSINOPHILS % 0.3 % (0.0-6.0); HEMATOCRIT 25.6 % (38.2-49.6); HEMOGLOBIN 8.6 g/dL (14.0-18.0); LYMPHOCYTES # (AUTO) 1.3 (1.0-3.2); MEAN CORPUSCULAR HEMOGLOBIN 30.1 pg (28-32); MEAN CORPUSCULAR HGB CONC 33.6 g/dL (31-35); MEAN CORPUSCULAR VOLUME 89.5 fL (81-99); MONOCYTES # (AUTO) 0.9 (0.2-0.8); MONOCYTES % 13.4 % (4.4-11.3); NEUTROPHILS # (AUTO) 4.5 (2.1-6.9); NEUTROPHILS % 65.2 % (38.7-80.0); PLATELET COUNT 166 x10e3/uL (140-360); RED BLOOD COUNT 2.86 x10e6/uL (4.3-5.7); RED CELL DISTRIBUTION WIDTH 16.4 % (11.7-14.4)
[2021-09-04 07:54] LABS: ALBUMIN/GLOBULIN RATIO 1.1 (0.8-2.0); ANION GAP 9.3 mmol/L (8-16); CREATININE, SERUM 0.62 mg/dL (0.72-1.25); POTASSIUM 3.3 mmol/L (3.5-5.1)
[2021-09-04] MEDS: GLYBURIDE 5 MG TAB PO SCH (09:14)
[2021-09-04] MEDS: MEMANTINE 10 MG TAB PO SCH ×2 (09:14→20:50)
[2021-09-04] MEDS: METFORMIN HCL 500 MG TAB PO SCH (20:50)
[2021-09-04] MEDS: TAMSULOSIN HCL 0.4 MG CAP PO SCH (20:50)
[2021-09-05] VITALS (8 sets, daily range): BP systolic 104–135; BP diastolic 68–75
[2021-09-05] MEDS: INSULIN LISPRO 100 UNIT/1 ML 3ML VIAL SQ SCH ×3 (07:30→16:47)
[2021-09-05] MEDS: GLYBURIDE 5 MG TAB PO SCH (08:30)
[2021-09-05] MEDS: MEMANTINE 10 MG TAB PO SCH (08:30)
[2021-09-05] MEDS ORDERED: ONDANSETRON HCL 4 MG ORAL DISINTEGRATING TAB PO PRN (09:00)
[2021-09-05] MEDS: SODIUM CHLORIDE 0.9% 1000ML 1,000 ML IV SCH (11:51)
[2021-09-05] MEDS: ACETAMINOPHEN/CODEINE 300MG - 30MG TAB PO PRN (13:14)
== END 2021-09-05 20:00 | disposition home or self-care (01) | DRG 536 ==
LOC: ER 17:54 → ERHOLD 21:46 → MED/SURG 23:13
PROVIDERS: ADMIT Family Medicine; ATTEND Family Medicine
DX: S32.392A Other fracture of left ilium, initial encounter for closed fracture (principal); I10 Essential (primary) hypertension; E11.9 Type 2 diabetes mellitus without complications; G30.9 Alzheimer's disease, unspecified; F02.80 Dementia in other diseases classified elsewhere, unspecified severity, without behavioral disturbance, psychotic disturbance, mood disturbance, and anxiety; N40.0 Benign prostatic hyperplasia without lower urinary tract symptoms; Z80.9 Family history of malignant neoplasm, unspecified; Y93.89 Activity, other specified; Y92.018 Other place in single-family (private) house as the place of occurrence of the external cause; W10.8XXA Fall (on) (from) other stairs and steps, initial encounter; D64.9 Anemia, unspecified; Z79.84 Long term (current) use of oral hypoglycemic drugs; Z20.822 Contact with and (suspected) exposure to COVID-19
CPT/HCPCS: 36415; 70450; 71260; 72125; 74177; 80048; 80053; 81001; 82948; 85025; 94799; 96361; 99284; J2270; J7030; Q9967; U0002